=== PATIENT | female | born 1975 | race Caucasian/White ===

== ENCOUNTER 2024-01-03 13:30 | Emergency (ER) | payer MEDICAID, SELFPAY ==
[2024-01-03 13:36] VITALS: BP 102/74; PULSE 77; RESP 16; TEMP 36.4; O2SAT 100; BMI 31.2
--- NOTE | 2024-01-03 13:41 | ED_ITS ---
HPI - Back Pain/Injury General Chief Complaint: Back Pain/Injury Stated Complaint: BACK PAIN Time Seen by Provider: 01/03/24 13:35 Source: patient Mode of arrival: ambulance Limitations: no limitations History of Present Illness HPI Narrative: Patient is a 48-year-old female who presents to the emergency department by ambulance for low back pain. She received 4 mg IV Versed and 50 mcg of fentanyl prior to arrival by EMS for pain. She states 6 days ago she felt a pull in her low back. She was seen at the [place] emergency department yesterday and states that they did not do enough for her. She had a CT scan performed and was diagnosed with a UTI, she states she continues to have pain along the spine and into the left leg. She has occasional tingling. No new falls or injuries. No concern for . No fevers or vomiting. Records show she was prescribed Tylenol, ibuprofen and Flexeril from [place] emergency department. Related Data Previous Rx's Medication Instructions Recorded ketorolac 10 mg tablet 10 mg PO TID PRN pain #10 tabs 01/03/24 methocarbamol 750 mg tablet 750 mg PO TID PRN pain #20 tabs 01/03/24 methylprednisolone 4 mg tablets in See Rx Instructions .Route 01/03/24 a dose pack (Medrol (Eric)) .COMPLEX #21 ea Allergies Allergy/AdvReac Type Severity Reaction Status Date / Time tramadol Allergy Severe Hives Verified 01/03/24 13:35 Review of Systems ROS Constitutional Denies: fever or chills Ears, nose, mouth, and throat Denies: throat pain or nasal congestion Cardiovascular Denies: chest pain Respiratory Denies: shortness of breath or cough Gastrointestinal Denies: abdominal pain, nausea or vomiting Genitourinary Denies: painful urination Musculoskeletal Reports: back pain and extremity pain; Denies: neck pain or joint pain Integumentary/Breast Denies: rash Neurological Reports: numbness in extremities; Denies: headache Endocrine Denies: excessive urination Exam Narrative Exam Narrative: Gen.: Awake, alert, in no distress, Obese female laying on her right side Head: Normocephalic, atraumatic ENT: Moist mucous membranes Respiratory: No respiratory distress Back: Diffuse tenderness of the lumbar spine and paraspinal muscles with no bony point tenderness or obvious deformity. Exam limited by body habitus. Diffuse tenderness of the left posterior hip Extremities: Moves extremities equally, no injuries noted; Normal dorsiflexion and plantarflexion of the lower extremities with no decrease in sensation to the medial thighs Psych: Normal mood and affect Neuro: No focal neuro deficit Skin: Warm, dry, intact Constitutional Vital Signs, click to edit/add: Last Vital Signs Temp 97.6 F 01/03/24 13:36 Pulse 77 01/03/24 13:36 Resp 16 01/03/24 13:36 BP 102/74 01/03/24 13:36 Pulse Ox 100 01/03/24 13:36 O2 Del Method Room Air 01/03/24 13:36 Course Vital Signs Vital signs: Vital Signs Temperature 97.6 F 01/03/24 13:36 Pulse Rate 77 01/03/24 13:36 Respiratory Rate 16 01/03/24 13:36 Blood Pressure 102/74 01/03/24 13:36 Pulse Oximetry 100 01/03/24 13:36 Oxygen Delivery Method Room Air 01/03/24 13:36 Temperature 97.6 F 01/03/24 13:36 Pulse Rate 77 01/03/24 13:36 Respiratory Rate 16 01/03/24 13:36 Blood Pressure 102/74 01/03/24 13:36 Pulse Oximetry 100 01/03/24 13:36 Oxygen Delivery Method Room Air 01/03/24 13:36 MDM - Back Pain/Injury MDM Narrative Medical decision making narrative: As reviewed from [facility] yesterday where the patient had a urine spec imen, CT scan of the abdomen and pelvis showing no acute abnormalities of the lumbar spine with moderate degenerative changes. Her exam is consistent with lumbar radiculopathy and low back pain. She has no focal neurodeficit on exam. Pain was improved after IV Dilaudid and Norflex in the ER. She maintains normal vital signs in the ER, documentation showed she was prescribed Tylenol, ibuprofen and Flexeril yesterday. She was instructed to stop these medications and will be prescribed Toradol, Medrol Dosepak and Robaxin. Follow-up with PCP and return to the ER if symptoms change or worsen. Medical Records Attestation: I reviewed the patient's medical records. Discharge Plan Discharge Chief Complaint: Back Pain/Injury Clinical Impression: Lumbar radiculopathy, Low back pain Patient Disposition: Home, Self-Care Time of Disposition Decision: 14:43 Condition: Good Prescriptions / Home Meds: New ketorolac 10 mg tablet 10 mg PO TID PRN (Reason: pain) Qty: 10 0RF methocarbamol 750 mg tablet 750 mg PO TID PRN (Reason: pain) Qty: 20 0RF methylprednisolone [Medrol (Eric)] 4 mg tablets,dose pack See Rx Instructions .ROUTE .COMPLEX Qty: 21 0RF Rx Instructions: Taper as directed Instructions: Acute Low Back Pain (ED), Lumbar Radiculopathy (ED) Additional Instructions: Stop flexeril and ibuprofen that was prescribed yesterday, take only medications prescribed today Stand Alone Forms: Portal Instructions Referrals: LEE APONTE [Primary Care Provider] - 1 week
[2024-01-03] MEDS: ONDANSETRON PF 4 MG/2 ML VIAL IV (13:48)
[2024-01-03] MEDS: HYDROMORPHONE HCL 1 MG/ML CARTRIDGE IV (13:48)
[2024-01-03] MEDS: ORPHENADRINE 60 MG/ 2 ML VIAL IV (13:48)
== END 2024-01-03 15:21 | disposition home or self-care (01) ==
PROVIDERS: Emergency Provider Emergency Medicine; PCP Internal Medicine
DX: M54.16 Radiculopathy, lumbar region (principal); M54.50 Low back pain, unspecified; Z68.31 Body mass index [BMI] 31.0-31.9, adult; E66.9 Obesity, unspecified
CPT/HCPCS: 96374; 96375; 99284; J1170; J2360; J2405

== ENCOUNTER 2024-10-11 09:31 | Emergency (ER) | payer MEDICAID, SELFPAY ==
[2024-10-11 09:34] VITALS: BP 121/83; PULSE 90; TEMP 36.8; O2SAT 95; BMI 35.9
--- NOTE | 2024-10-11 09:44 | ED.GENADUL1 ---
HPI HPI - General Adult General Chief complaint: Upper Respiratory Infection Stated complaint: SORE THROAT, FEVER Time Seen by Provider: 10/11/24 09:33 Source: patient Mode of arrival: walk-in Limitations: no limitations History of Present Illness HPI narrative: Patient presents to ED complaining of upper respiratory symptoms. She said this started last night. She has chest congestion tightness and a cough. She also complains of a sore throat and her chest is hurting from coughing so much. She reports some sinus pressure and overall just not feeling well. No abdominal pain no nausea vomiting. Vital stable. No wheezing no respiratory distress Related Data Previous Rx's ?Medication ?Instructions ?Recorded ketorolac 10 mg tablet 10 mg PO TID PRN pain #10 tabs 01/03/24 methocarbamol 750 mg tablet 750 mg PO TID PRN pain #20 tabs 01/03/24 methylprednisolone 4 mg tablets in See Rx Instructions .Route 01/03/24 a dose pack (Medrol (Eric)) .COMPLEX #21 ea albuterol sulfate 90 mcg/actuation 1 inh inhalation Q6H PRN shortness 10/11/24 aerosol inhaler of breath or wheezing #8.5 grams hydrocodone-homatropine 5 mg-1.5 5 ml PO Q6H PRN cough #160 mL 10/11/24 mg/5 mL (5 mL) oral syrup (Hycodan) methylprednisolone 4 mg tablets in 4 mg PO DAILY #21 ea 10/11/24 a dose pack (Medrol (Eric)) Allergies Allergy/AdvReac Type Severity Reaction Status Date / Time tramadol Allergy Severe Hives Verified 10/11/24 09:37 Opioid HPI Opioid Management Most Recent Opioid Data: Last Pain Scale 8 01/03/24 13:55 01/03/24 Review of Systems ROS Status of ROS 10 or more systems reviewed and unremarkable except as noted in history and below PFSH PFS Social History Little interest or pleasure in doing things: not at all Feeling down, depressed, or hopeless: not at all Exam Narrative Exam Narrative: Time Seen: [] Vital Signs: [Per nurse's notes.] General: [Alert] Skin: [Warm, dry, no rash.] Head: [Normocephalic, atraumatic.] Neck: [Supple, trachea midline.] Eye: [Pupils are equal, round and reactive to light, extraocular movements are intact, normal conjunctiva.] Ears, nose, mouth and throat: oral mucosa moist. Posterior pharynx erythematous no exudates Cardiovascular: [Regular rate and rhythm, no murmur.] Respiratory: [Lungs are clear to auscultation, respirations are non-labored, breath sounds are equal.] Chest wall: [No tenderness, no deformity.] Gastrointestinal: [Soft, nontender, non distended, normal bowel sounds.] MSK: 5 out of 5 muscle strength x 4 extremities no calf pain or edema Lymphatics: [No lymphadenopathy.] Psychiatric: [Cooperative, appropriate mood & affect.] Neurological: [Alert and oriented to person, place, time, and situation, no focal neurological deficit observed.] Constitutional Vital Signs, click to edit/add: Last Vital Signs Temp 98.2 F 10/11/24 09:34 Pulse 90 10/11/24 09:34 Resp 20 10/11/24 09:34 BP 121/83 10/11/24 09:34 Pulse Ox 96 10/11/24 09:50 O2 Del Method Room Air 10/11/24 09:50 Course Vital Signs Vital signs: Vital Signs Temperature 98.2 F 10/11/24 09:34 Pulse Rate 90 10/11/24 09:34 Respiratory Rate 20 10/11/24 09:34 Blood Pressure 121/83 10/11/24 09:34 Pulse Oximetry 95 10/11/24 09:34 Oxygen Delivery Method Room Air 10/11/24 09:34 Temperature 98.2 F 10/11/24 09:34 Pulse Rate 90 10/11/24 09:34 Respiratory Rate 20 10/11/24 09:34 Blood Pressure 121/83 10/11/24 09:34 Pulse Oximetry 96 10/11/24 09:50 Oxygen Delivery Method Room Air 10/11/24 09:50 Medical Decision Making MDM Narrative Medical decision making narrative: Patient swabs are negative for flu COVID and strep. Symptoms just started yesterday therefore most likely viral. No need for antibiotics at this time. Return to ED if worsening symptoms otherwise use the medications for symptom control. Patient comfortable care plan for home. Differential Diagnosis Differential Diagnosis: Flu strep COVID viral syndrome pneumonia bronchitis Lab Data Lab results reviewed: Yes I reviewed the patient's lab results Labs: Lab Results 10/11/24 Range/Units 09:42 Influenza Type A Ag Negative Influenza Type B Ag Negative SARS-CoV-2 Ag (CV2AG) Negative (NEGATIVE) Streptococcus Screen Negative Discharge Plan Discharge Chief Complaint: Upper Respiratory Infection Clinical Impression: Upper respiratory infection Patient Disposition: Home, Self-Care Time of Disposition Decision: 10:11 Condition: Good Mode of Transportation: Private Vehicle Prescriptions / Home Meds: New albuterol sulfate 90 mcg/actuation HFA aerosol inhaler 1 inh inhalation Q6H PRN (Reason: shortness of breath or wheezing) Qty: 8.5 0RF methylprednisolone [Medrol (Eric)] 4 mg tablets,dose pack 4 mg PO DAILY Qty: 21 0RF hydrocodone-homatropine [Hycodan] 5-1.5 mg/5 mL (5 mL) syrup 5 ml PO Q6H PRN (Reason: cough) Qty: 160 0RF No Action ketorolac 10 mg tablet 10 mg PO TID PRN (Reason: pain) Qty: 10 0RF methocarbamol 750 mg tablet 750 mg PO TID PRN (Reason: pain) Qty: 20 0RF methylprednisolone [Medrol (Eric)] 4 mg tablets,dose pack See Rx Instructions .ROUTE .COMPLEX Qty: 21 0RF Rx Instructions: Taper as directed Print Language: [place]i Instructions: Upper Respiratory Infection (ED) Referrals: LEE APONTE [Primary Care Provider] - 1 week
[2024-10-11 09:50] VITALS: O2SAT 96
[2024-10-11 10:00] LABS: Influenza Virus A Antigen Negative; Influenza Virus B Antigen Negative; Internal Control Within Normal Limits; Strep A Antigen Screen Negative
[2024-10-11 10:01] LABS: Internal Control Within Normal Limits; SARS-CoV-2 Ag NEGATIVE (NEGATIVE)
[2024-10-11] MEDS: DEXAMETHASONE SOD PHOS 10 MG/ML VIAL PO (10:01)
--- OUTSIDE RECORDS SUMMARY | 2024-10-11 10:25 | XMS_ITS | CCD ---
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 1.025 Normal 1.003-[address] [place] [address] Comment on above: Performed By: #### N UM #### [facility] ([id number]) [address] [place] [address] [place] [address] UROBILINOGEN TANA 0.2 eu/dL Normal <1.1 [facility] Comment on above: Performed By: #### N UM #### [facility] ([id number]) [address] [place] [address] 14102 ECG 12 lead ECGon 05-12-2023 ECG 12 lead ECG [facility] [place] [address] Electrocardiograph Report Signed Patient: Laina Spain MR#: [id number] : 1975 Acct:[id number] Age/Sex: 48 / F ADM Date: 05/11/23 Loc: Room: [address] [place] [address] Type: ADM IN Attending Dr: Adolfo Mcleod MD Ordering Provider: Adolfo Mcleod MD Date of Service: 05/12/23 ECG/ECG 12 lead ECG: baseline Copies to: Test Reason : Blood Pressure : / mmHG Vent. Rate : 075 BPM Atrial Rate : 075 BPM P-R Int : 134 ms QRS Dur : 076 ms QT Int : 370 ms P-R-T Axes : 036 038 059 degrees QTc Int : 413 ms Normal sinus rhythm Low voltage QRS Borderline ECG No previous ECGs available Confirmed by KENDAL CALIXTO DO ([id number]) on 05/12/2023 10:24:38 PM Referred By: Electronically Signed By:KENDAL CALIXTO DO Transcribed By: MUS Signed By Kendal Calixto DO 05/12 Normal [facility] Alanine aminotransferase [En zymatic activity/volume] in Serum or PlasmaOrdered By: Jani Drummond on 05-11-2023 ALT [Catalytic activity/Vol] 10 U/L 7-52 [facility] Albumin [Mass/volume] in Ser um or Plasma by Bromocresol green (BCG) dye binding methoOrdered By: Jani Drummond on 05-11-2023 Albumin BCG dye [Mass/Vol] 4.4 g/dL 3.5-5.7 [facility] Alkaline phosphatase [Enzyma tic activity/volume] in Serum or PlasmaOrdered By: Jani Drummond on 05-11-2023 ALP [Catalytic activity/Vol] 69 U/L 34-104 [facility] Amphetamine Screen Ql (U)Ord ered By: Jani Drummond on 05-11-2023 Amphetamines Ql (U) Positive Negative [facility] Aspartate aminotransferase [ Enzymatic activity/volume] in Serum or PlasmaOrdered By: Jani Drummond on 05-11-2023 AST [Catalytic activity/Vol] 13 U/L 13-39 [facility] Automated erythrocytes count in urine sediment (number/area)Ordered By: Jani Drummond on 05-11-2023 RBC Auto (Urine sed) [#/Area] 5-9 [HPF] 0-4 [facility] Automated leukocytes count i n urine sediment (number/area)Ordered By: Jani Drummond on 05-11-2023 WBC Auto (Urine sed) [#/Area] 5-9 [HPF] 0-4 [facility] Automated urine sediment jayden cium oxalate crystal count by microscopy (number/high powOrdered By: Jani Drummond on 05-11-2023 Calcium oxalate crystals LM.HPF (Urine sed) [#/Area] 2+ [HPF] [facility] Barbiturates [Presence] in U rine by Screen methodOrdered By: Jani Drummond on 05-11-2023 Barbiturates Screen Ql (U) Negative Negative [facility] Basophils Auto (Bld) [#/Vol] Ordered By: Jani Drummond on 05-11-2023 Basophils (Bld) [#/Vol] 0.1 10*3/uL 0.0-0.2 [facility] Basophils/100 WBC Auto (Bld) Ordered By: Jani Drummond on 05-11-2023 Basophils/100 WBC (Bld) 0.8 % . [facility] Benzodiazepines Screen Ql (U )Ordered By: Jani Drummond on 05-11-2023 Benzodiazepines Ql (U) Negative Negative [facility] Benzoylecgonine [Presence] i n Urine by Screen methodOrdered By: Jani Drummond on 05-11-2023 Benzoylecgonine Screen Ql (U) Negative Negative [facility] Bilirubin Auto test strip Ql (U)Ordered By: Jani Drummond on 05-11-2023 Bilirubin Ql (U) Negative Negative [facility] Bilirubin.total [Mass/volume ] in Serum or PlasmaOrdered By: Jani Drummond on 05-11-2023 Bilirubin [Mass/Vol] 0.4 mg/dL 0.3-1.0 [facility] Calcium [Mass/volume] in Ser um or PlasmaOrdered By: Jani Drummond on 05-11-2023 Calcium [Mass/Vol] 9.1 mg/dL 8.6-10.3 [facility] Cannabinoids [Presence] in U rine by Screen methodOrdered By: Jani Drummond on 05-11-2023 Cannabinoids Screen Ql (U) Negative Negative [facility] Comment on above: These are unconfirme d results and should not be used for legal purposes. Drug Cut-Off Concentration: AMPH 1000 ng/mL ALISSON 200 ng/mL GRETA 200 ng/mL COCM 300 ng/mL OP 300 ng/mL PCP 25 ng/mL THC 20 ng/mL Carbon dioxide, total [Moles /volume] in Serum or PlasmaOrdered By: Jani Drummond on 05-11-2023 CO2 [Moles/Vol] 25.8 mmol/L 21.0-31.0 [facility] Chloride [Moles/volume] in S rolando or PlasmaOrdered By: Jani Drummond on 05-11-2023 Chloride [Moles/Vol] 104 mmol/L 98-107 [facility] Cholesterol [Mass/volume] in Serum or PlasmaOrdered By: Adolfo Mcleod on 05-11-2023 Cholesterol [Mass/Vol] 175 mg/dL 140-200 [facility] Comment on above: Chol less than 200 m g/dl low riskChol 201-239 mg/dl borderline riskChol 240 mg/dl and greater high risk Cholesterol in LDL Calc [Mas s/Vol]Ordered By: Adolfo Mcleod on 05-11-2023 Cholesterol in LDL [Mass/Vol] 74 mg/dL 0-100 [facility] Comment on above: LDL ATP III CLASSIFI CATIONLDL less than 100 mg/dL OptimalLDL 100-129 mg/dL Near or above optimalLDL 130-159 mg/dL Borderline highLDL 160-189 mg/dL HighLDL greater than 189 mg/dL Very high Cholesterol in VLDL Calc [Ma ss/Vol]Ordered By: Adolfo Mcleod on 05-11-2023 Cholesterol in VLDL [Mass/Vol] 62 mg/dL [facility] Complete Blood Count Auto Di ffon 05-11-2023 Basophils (Bld) [#/Vol] 0.1 10*3/uL Normal 0.0-0.2 [facility] Comment on above: Result Comment: PERF ORMED BY: [facility] [address] [place] [address] PATHOLOGIST COKE CRUSHER OPERATOR PETAR OLMOS M.D. Performed By: #### C BC, CMP, ETOH #### [facility] [address] [place] [address] [place] Basophils/100 WBC (Bld) 0.8 % Normal . [facility] Comment on above: Performed By: #### C BC, CMP, ETOH #### [facility] [address] [place] [address] [place] Eosinophils (Bld) [#/Vol] 0.3 10*3/uL Normal 0.0-0.45 [facility] Comment on above: Performed By: #### C BC, CMP, ETOH #### [facility] [address] [place] [address] [place] Eosinophils/100 WBC (Bld) 3.3 % Normal . [facility] Comment on above: Performed By: #### C BC, CMP, ETOH #### [facility] [address] Erythrocyte distribution width (RBC) [Ratio] 13.7 % Normal 11.9-15.3 [facility] Comment on above: Performed By: #### C BC, CMP, ETOH #### [facility] [address] Hematocrit (Bld) [Volume fraction] 41.6 % Normal 34.0-46.4 [facility] Comment on above: Performed By: #### C BC, CMP, ETOH #### [facility] [address] [place] [address] [place] Hemoglobin (Bld) [Mass/Vol] 13.8 g/dL Normal 11.8-15.4 [facility] Comment on above: Performed By: #### C BC, CMP, ETOH #### [facility] [address] [place] [address] [place] Lymphocytes (Bld) [#/Vol] 2.7 10*3/uL Normal 1.00-4.8 [facility] Comment on above: Performed By: #### C BC, CMP, ETOH #### [facility] [address] [place] [address] [place] Lymphocytes/100 WBC (Bld) 31.5 % Normal . [facility] Comment on above: Performed By: #### C BC, CMP, ETOH #### [address] MCH (RBC) [Entitic mass] 27.2 pg Normal 24.7-34.3 [facility] Comment on above: Performed By: #### C BC, CMP, ETOH #### [address] MCV (RBC) [Entitic vol] 81.9 fL Normal 80-100 [facility] Comment on above: Performed By: #### C BC, CMP, ETOH #### [address] Mean Corpuscular HGB Conc 33.2 g/dL Normal 32.0-35.0 [facility] Comment on above: Performed By: #### C BC, CMP, ETOH #### [address] Monocytes (Bld) [#/Vol] 0.4 10*3/uL Normal 0.0-0.8 [facility] Comment on above: Performed By: #### C BC, CMP, ETOH #### [address] Monocytes/100 WBC (Bld) 18.53 % Normal 0.00-20.00 [facility] Comment on above: Performed By: #### C BC, CMP, ETOH #### [address] Monocytes/100 WBC (Bld) 4.7 % Normal . [facility] Comment on above: Performed By: #### C BC, CMP, ETOH #### [address] Neutrophils (Bld) [#/Vol] 5.1 10*3/uL Normal 1.8-7.7 [facility] Comment on above: Performed By: #### C BC, CMP, ETOH #### [place] [address] [place] Neutrophils/100 WBC (Bld) 59.7 % Normal . [facility] Comment on above: Performed By: #### C BC, CMP, ETOH #### [address] NRBC% 0.1 /100{WBC} Normal 0-0.5 [facility] Comment on above: Performed By: #### C BC, CMP, ETOH #### [address] Platelet mean volume (Bld) [Entitic vol] 7.7 fL Normal 6.3-10.7 [facility] Comment on above: Performed By: #### C BC, CMP, ETOH #### [address] Platelets (Bld) [#/Vol] 310 10*3/uL Normal 150-450 [facility] Comment on above: Performed By: #### C BC, CMP, ETOH #### [address] RBC (Bld) [#/Vol] 5.08 10*6/uL High 3.60-5.00 [facility] Comment on above: Performed By: #### C BC, CMP, ETOH #### [address] WBC (Bld) [#/Vol] 8.6 10*3/uL Normal 3.8-11.6 [facility] Comment on above: Performed By: #### C BC, CMP, ETOH #### [address] Comprehensive Metabolic Pane tra 05-11-2023 Albumin [Mass/Vol] 4.4 g/dL Normal 3.5-5.7 [facility] Comment on above: Performed By: #### C BC, CMP, ETOH #### [address] Albumin/Globulin [Mass ratio] 1.5 {ratio} Normal [facility] Comment on above: Performed By: #### C BC, CMP, ETOH #### [address] ALP [Catalytic activity/Vol] 69 U/L Normal 34-104 [facility] Comment on above: Performed By: #### C BC, CMP, ETOH #### [address] ALT [Catalytic activity/Vol] 10 U/L Normal 7-52 [facility] Comment on above: Performed By: #### C BC, CMP, ETOH #### [address] Anion gap [Moles/Vol] 12.2 mmol/L Normal 6.0-15.0 [facility] Comment on above: Performed By: #### C BC, CMP, ETOH #### [address] AST [Catalytic activity/Vol] 13 U/L Normal 13-39 [facility] Comment on above: Performed By: #### C BC, CMP, ETOH #### [address] Bilirubin [Mass/Vol] 0.4 mg/dL Normal 0.3-1.0 [facility] Comment on above: Performed By: #### C BC, CMP, ETOH #### [address] Calcium [Mass/Vol] 9.1 mg/dL Normal 8.6-10.3 [facility] Comment on above: Performed By: #### C BC, CMP, ETOH #### [address] Chloride [Moles/Vol] 104 mmol/L Normal 98-107 [facility] Comment on above: Performed By: #### C BC, CMP, ETOH #### [address] CO2 [Moles/Vol] 25.8 mmol/L Normal 21.0-31.0 [facility] Comment on above: Performed By: #### C BC, CMP, ETOH #### [place] [address] [place] Creatinine [Mass/Vol] 0.76 mg/dL Normal 0.60-1.20 [facility] Comment on above: Performed By: #### C BC, CMP, ETOH #### [place] [address] [place] Creatinine Clr Calc Pharmacy 98.53 Normal [facility] Comment on above: Result Comment: PERF ORMED BY: [place] [address] PATHOLOGIST COKE CRUSHER OPERATOR PETAR OLMOS M.D. Performed By: #### C BC, CMP, ETOH #### [address] GFR/1.73 sq M.predicted MDRD (S/P/Bld) [Vol rate/Area] mL/min/{1.73_m2} Normal [facility] Comment on above: Performed By: #### C BC, CMP, ETOH #### [address] Globulin (S) [Mass/Vol] 3.0 g/dL Normal [facility] Comment on above: Performed By: #### C BC, CMP, ETOH #### [address] Glucose [Mass/Vol] 120 mg/dL High 70-100 [facility] Comment on above: Result Comment: [place] Glucose Reference Range is dependent on time and content of last meal. Glucose of more than 200 mg/dL in a nonstressed, ambulatory subject supports the diagnosis of Diabetes Mellitus. ADA recommended reference range Performed By: #### C BC, CMP, ETOH #### [address] Potassium [Moles/Vol] 4.0 mmol/L Normal 3.5-5.1 [facility] Comment on above: Performed By: #### C BC, CMP, ETOH #### [address] Protein [Mass/Vol] 7.4 g/dL Normal 6.4-8.9 [facility] Comment on above: Performed By: #### C BC, CMP, ETOH #### [facility] [address] [place] [address] [place] Sodium [Moles/Vol] 138 mmol/L Normal 136-145 [facility] Comment on above: Performed By: #### C BC, CMP, ETOH #### [facility] [address] Urea nitrogen [Mass/Vol] 8 mg/dL Normal 7-25 [facility] Comment on above: Performed By: #### C BC, CMP, ETOH #### [place] [address] [place] Creatinine [Mass/volume] in Serum or PlasmaOrdered By: Jani Drummond on 05-11-2023 Creatinine [Mass/Vol] 0.76 mg/dL 0.60-1.[address] [facility] Dipstick and Microscopicon 0 05-11-2023 Appearance (U) Slightly Cloudy Critically abnormal Clear [facility] Comment on above: Order Comment: Name Collection Type:: Clean-Voided Midstream Performed By: #### A DDONUAPLUS, URDS, UHCG #### [place] [address] [place] Bacteria,Urine 2+ High None Seen [facility] Comment on above: Order Comment: Name Collection Type:: Clean-Voided Midstream Performed By: #### A DDONUAPLUS, URDS, UHCG #### [place] [address] [place] Bilirubin,Urine Negative Normal Negative [facility] Comment on above: Order Comment: Name Collection Type:: Clean-Voided Midstream Performed By: #### A DDONUAPLUS, URDS, UHCG #### [place] [id number] [place] Calcium Oxalate Crystals,Urine 2+ Normal [facility] Comment on above: Order Comment: Name Collection Type:: Clean-Voided Midstream Performed By: #### A DDONUAPLUS, URDS, UHCG #### [place] [address] [place] Color (U) Yellow Normal Yellow [facility] Comment on above: Order Comment: Name Collection Type:: Clean-Voided Midstream Performed By: #### A DDONUAPLUS, URDS, UHCG #### [address] Glucose Ql (U) Normal Normal Normal [facility] Comment on above: Order Comment: Name Collection Type:: Clean-Voided Midstream Performed By: #### A DDONUAPLUS, URDS, UHCG #### [place] [address] [place] Hyaline Casts,Urine 0-8 Normal 0-8 [facility] Comment on above: Order Comment: Name Collection Type:: Clean-Voided Midstream Performed By: #### A DDONUAPLUS, URDS, UHCG #### [address] Ketones Ql (U) Negative Normal Negative [facility] Comment on above: Order Comment: Name Collection Type:: Clean-Voided Midstream Performed By: #### A DDONUAPLUS, URDS, UHCG #### [address] Leukocyte esterase Test strip Ql (U) Negative Normal Negative [facility] Comment on above: Order Comment: Name Collection Type:: Clean-Voided Midstream Performed By: #### A DDONUAPLUS, URDS, UHCG #### [place] [address] [place] Nitrite,Urine Negative Normal Negative [facility] Comment on above: Order Comment: Name Collection Type:: Clean-Voided Midstream Performed By: #### A DDONUAPLUS, URDS, UHCG #### [place] [address] [place] Occult Blood,Urine Negative Normal Negative [facility] Comment on above: Order Comment: Name Collection Type:: Clean-Voided Midstream Performed By: #### A DDONUAPLUS, URDS, UHCG #### [address] pH (U) 5.5 [pH] Normal 5.0-9.0 [facility] Comment on above: Order Comment: Name Collection Type:: Clean-Voided Midstream Performed By: #### A DDONUAPLUS, URDS, UHCG #### [address] Protein,Urine Negative Normal Negative [facility] Comment on above: Order Comment: Name Collection Type:: Clean-Voided Midstream Performed By: #### A DDONUAPLUS, URDS, UHCG #### [address] RBC,Urine 5-9 High 0-4 [facility] Comment on above: Order Comment: Name Collection Type:: Clean-Voided Midstream Performed By: #### A DDONUAPLUS, URDS, UHCG #### [address] Specificy [place],Urine 1.030 Normal 1.001-1.03 0 [facility] Comment on above: Order Comment: Name Collection Type:: Clean-Voided Midstream Performed By: #### A DDONUAPLUS, URDS, UHCG #### [address] Squamous Epithelial Cell,Urine Innumerable High 0-2 [facility] Comment on above: Order Comment: Name Collection Type:: Clean-Voided Midstream Performed By: #### A DDONUAPLUS, URDS, UHCG #### [place] [address] [place] Urobilinogen,Urine Normal Normal Normal [facility] Comment on above: Order Comment: Name Collection Type:: Clean-Voided Midstream Performed By: #### A DDONUAPLUS, URDS, UHCG #### [place] [address] [place] WBC,Urine 5-9 High 0-4 [facility] Comment on above: Order Comment: Name Collection Type:: Clean-Voided Midstream Performed By: #### A DDONUAPLUS, URDS, UHCG #### [address] Drug Screen,Urineon 05-11-20 Amphetamine Screen,Urine Positive High Negative [facility] Comment on above: Performed By: #### A DDONUAPLUS, URDS, UHCG #### [address] Barbiturate Screen,Urine Negative Normal Negative [facility] Comment on above: Performed By: #### A DDONUAPLUS, URDS, UHCG #### [address] Benzodiazepines Screen,Urine Negative Normal Negative [facility] Comment on above: Performed By: #### A DDONUAPLUS, URDS, UHCG #### [address] Cannabinoid Screen,Urine Negative Normal Negative [facility] Comment on above: Result Comment: Thes e are unconfirmed results and should not be used for legal purposes. Drug Cut-Off Concentration: AMPH 1000 ng/mL ALISSON 200 ng/mL GRETA 200 ng/mL COCM 300 ng/mL OP 300 ng/mL PCP 25 ng/mL THC 20 ng/mL PERFORMED BY: [place] [address] PATHOLOGIST COKE CRUSHER OPERATOR PETAR OLMOS M.D. Performed By: #### A DDONUAPLUS, URDS, UHCG #### [address] Cocaine Screen,Urine Negative Normal Negative [facility] Comment on above: Performed By: #### A DDONUAPLUS, URDS, UHCG #### [place] [address] [place] Opiate Screen,Urine Negative Normal Negative [facility] Comment on above: Performed By: #### A DDONUAPLUS, URDS, UHCG #### [place] [address] [place] Phencyclidine Screen,Urine Negative Normal Negative [facility] Comment on above: Performed By: #### A DDONUAPLUS, URDS, UHCG #### [address] Eosinophils Auto (Bld) [#/Vo l]Ordered By: Jani Drummond on 05-11-2023 Eosinophils (Bld) [#/Vol] 0.3 10*3/uL 0.0-0.45 [facility] Eosinophils/100 WBC Auto (Bl d)Ordered By: Jnai Drummond on 05-11-2023 Eosinophils/100 WBC (Bld) 3.3 % . [facility] Erythrocyte distribution wid th Auto (RBC) [Ratio]Ordered By: Jani Drummond on 05-11-2023 Erythrocyte distribution width (RBC) [Ratio] 13.7 % 11.9-15.3 [facility] Ethanol [Mass/volume] in Ser um or PlasmaOrdered By: Jani Drummond on 05-11-2023 Ethanol [Mass/Vol] mg/dL [facility] Ethanol [Mass/Vol] TNP [facility] Comment on above: Test not performed Ethyl Alcohol Profileon 04-22 Ethanol [Mass/Vol] mg/dL Normal [facility] Comment on above: Performed By: #### C BC, CMP, ETOH #### [facility] [address] [place] [address] Percent Ethanol Not performed Normal [facility] Comment on above: Result Comment: PERF ORMED BY: [place] [address] PATHOLOGIST COKE CRUSHER OPERATOR PETAR OLMOS M.D. Performed By: #### C BC, CMP, ETOH #### [address] Globulin Calc (S) [Mass/Vol] Ordered By: Jani Drummond on 05-11-2023 Globulin (S) [Mass/Vol] 3.0 g/dL [facility] Glucose [Mass/volume] in Ser um or PlasmaOrdered By: Jani Drummond on 05-11-2023 Glucose [Mass/Vol] 120 mg/dL 70-100 [facility] Comment on above: ADA recommended refe rence rangeRandom Glucose Reference Range is dependent on time and content of last meal. Glucose of more than 200 mg/dL in a nonstressed, ambulatory subject supports the diagnosis of Diabetes Mellitus. HCG ( test) IAjenai d Ql (U)Ordered By: Jani Drummond on 05-11-2023 HCG ( test) Ql (U) Negative [facility] HCG,Urineon 05-11-2023 Beta HCG ( test) Ql (U) Negative Normal [facility] Comment on above: Order Comment: Name Collection Type:: Clean-Voided Midstream Result Comment: PERF ORMED BY: [place] [address] PATHOLOGIST COKE CRUSHER OPERATOR PETAR OLMOS M.D. Performed By: #### A DDONUAPLUS, URDS, C #### [address] Hematocrit Auto (Bld) [Volum e fraction]Ordered By: Jani Drummond on 05-11-2023 Hematocrit (Bld) [Volume fraction] 41.6 % 34.0-46.4 [facility] Hemoglobin [Mass/volume] in BloodOrdered By: Jani Drummond on 05-11-2023 Hemoglobin (Bld) [Mass/Vol] 13.8 g/dL 11.8-15.4 [facility] Ketones Auto test strip (U) [Mass/Vol]Ordered By: Jani Drummond on 05-11-2023 Ketones (U) [Mass/Vol] Negative Negative [facility] Laboratory - UrinalysisOrder ed By: Jani Drummond on 05-11-2023 Hyaline casts LM Ql (Urine sed) 0-8 [LPF] 0-8 [facility] Leukocytes [#/volume] correc sai for nucleated erythrocytes in Blood by Automated counOrdered By: Jani Drummond on 05-11-2023 WBC corrected for nucl RBC Auto (Bld) [#/Vol] 8.6 10*3/uL 3.8-11.6 [facility] Lipid Panelon 05-11-2023 Cholesterol [Mass/Vol] 175 mg/dL Normal 140-200 [facility] Comment on above: Order Comment: Comme nt use ER blood Result Comment: Chol less than 200 mg/dl low risk Chol 201-239 mg/dl borderline risk Chol 240 mg/dl and greater high risk Performed By: #### L IPID, [id number], TSH3 [id number] #### [facility] [address] [id number] [place] Cholesterol in HDL [Mass/Vol] 38 mg/dL Normal 23-92 [facility] Comment on above: Order Comment: Comme nt use ER blood Result Comment: HDL CHOL ATP-III CLASSIFICATION Cardiovascular Risk HDL > or equal to 60 mg/dL LOW HDL < 40 mg/dL HIGH Performed By: #### L IPID, [id number], TSH3 [id number] #### [facility] [address] [id number] [facility] Cholesterol.total/Cho lesterol in HDL [Mass ratio] 4.6 {ratio} Normal <5.0 [facility] Comment on above: Order Comment: Comme nt use ER blood Performed By: #### L IPID, [id number], TSH3 wRFLX #### [facility] [address] [id number] [facility] LDL Cholesterol,Calculate d 74 mg/dL Normal 0-100 [facility] Comment on above: Order Comment: Comme nt use ER blood Result Comment: LDL ATP III CLASSIFICATION LDL less than 100 mg/dL Optimal LDL 100-129 mg/dL Near or above optimal LDL 130-159 mg/dL Borderline high LDL 160-189 mg/dL High LDL greater than 189 mg/dL Very high Performed By: #### L IPID, [id number], TSH3 wRFLX #### [facility] [address] [id number] [place] Triglyceride w/Reflex 314 mg/dL High 0-149 [facility] Comment on above: Order Comment: Comme nt use ER blood Result Comment: TRIG ATP III CLASSIFICATION TRIG less than 150 mg/dL Normal TRIG 150-199 mg/dL Borderline high TRIG 200-500 mg/dL High TRIG greater than 500 mg/dL Very high Standard traceable to the Center for Disease Conrtrol and Prevention (CDC) test method. Performed By: #### L IPID, [id number], TSH3 wRFLX #### [facility] [address] [id number] [facility] VLDL CHOLESTEROL 62 mg/dL Normal [facility] Comment on above: Order Comment: Comme nt use ER blood Performed By: #### L IPID, [id number], TSH3 wRFLX #### [facility] [address] Lymphocytes Auto (Bld) [#/Vo l]Ordered By: Jani Drummond on 05-11-2023 Lymphocytes (Bld) [#/Vol] 2.7 10*3/uL 1.00-4.8 [facility] Lymphocytes/100 WBC Auto (Bl d)Ordered By: Jani Drummond on 05-11-2023 Lymphocytes/100 WBC (Bld) 31.5 % . [facility] MCH Auto (RBC) [Entitic mass ]Ordered By: Jani Drummond on 05-11-2023 MCH (RBC) [Entitic mass] 27.2 pg 24.7-34.3 [facility] MCHC Auto (RBC) [Mass/Vol]Or dered By: Jani Drummond on 05-11-2023 MCHC (RBC) [Mass/Vol] 33.2 g/dL 32.0-35.[address] [facility] MCV Auto (RBC) [Entitic vol] Ordered By: Jani Drummond on 05-11-2023 MCV (RBC) [Entitic vol] 81.9 fL 80-100 [facility] Monocyte distribution width [Entitic volume] in Blood by AutomatedOrdered By: Jani Drummond on 05-11-2023 Monocyte distribution width Auto (Bld) [Entitic vol] 18.53 % 0.00-20.00 [facility] Monocytes Auto (Bld) [#/Vol] Ordered By: Jani Drummond on 05-11-2023 Monocytes (Bld) [#/Vol] 0.4 10*3/uL 0.0-0.8 [facility] Monocytes/100 WBC Auto (Bld) Ordered By: Jani Drummond on 05-11-2023 Monocytes/100 WBC (Bld) 4.7 % . [facility] Neutrophils Auto (Bld) [#/Vo l]Ordered By: Jani Drummond on 05-11-2023 Neutrophils (Bld) [#/Vol] 5.1 10*3/uL 1.8-7.7 [facility] Neutrophils/100 WBC Auto (Bl d)Ordered By: Jani Drummond on 05-11-2023 Neutrophils/100 WBC (Bld) 59.7 % . [facility] No Panel InformationOrdered By: Jani Drummond on 05-11-2023 Estimated GFR (CKD-EPI) > 60.0 mL/Min [facility] Creatinine Clearance (Chem 98.53 [facility] Nucleated erythrocytes [Pres ence] in Blood by Automated countOrdered By: Jani Drummond on 05-11-2023 Nucleated RBC Auto Ql (Bld) 0.1 /100{WBC} 0-0.5 [facility] Opiates [Presence] in Urine by Screen methodOrdered By: Jani Drummond on 05-11-2023 Opiates Screen Ql (U) Negative Negative [facility] Phencyclidine Screen Ql (U)O rdered By: Jani Drummond on 05-11-2023 Phencyclidine Ql (U) Negative Negative [facility] Platelet mean volume Auto (B ld) [Entitic vol]Ordered By: Jani Drummond on 05-11-2023 Platelet mean volume (Bld) [Entitic vol] 7.7 fL 6.3-10.7 [facility] Platelets Auto (Bld) [#/Vol] Ordered By: Jani Drummond on 05-11-2023 Platelets (Bld) [#/Vol] 310 10*3/uL 150-450 [facility] Potassium [Moles/volume] in Serum or PlasmaOrdered By: Jani Drummond on 05-11-2023 Potassium [Moles/Vol] 4.0 mmol/L 3.5-5.[address] [facility] Protein Auto test strip (U) [Mass/Vol]Ordered By: Jani Drummond on 05-11-2023 Protein (U) [Mass/Vol] Negative Negative [facility] Protein [Mass/volume] in Ser um or PlasmaOrdered By: Jani Drummond on 05-11-2023 Protein [Mass/Vol] 7.4 g/dL 6.4-8.9 [facility] RBC Auto (Bld) [#/Vol]Ordere d By: Jani Drummond on 05-11-2023 RBC (Bld) [#/Vol] 5.08 10*6/uL 3.60-5.00 [facility] Serum or plasma albumin/glob ulin mass ratioOrdered By: Jani Drummond on 05-11-2023 Albumin/Globulin [Mass ratio] 1.5 {ratio} [facility] Serum or plasma anion gap de terminationOrdered By: Jani Drummond on 05-11-2023 Anion gap [Moles/Vol] 12.2 mmol/L 6.0-15.0 [facility] Serum or plasma high density lipoprotein (HDL) cholesterol measurementOrdered By: Adolfo Mcleod on 05-11-2023 Cholesterol in HDL [Mass/Vol] 38 mg/dL 23-92 [facility] Comment on above: HDL CHOL ATP-III CLA SSIFICATION Cardiovascular RiskHDL > or equal to 60 mg/dL LOWHDL < 40 mg/dL HIGH Serum or plasma total choles terol/high density lipoprotein (HDL) cholesterol mass ratOrdered By: Adolfo Mcleod on 05-11-2023 Cholesterol.total/Cho lesterol in HDL [Mass ratio] 4.6 {ratio} <5.0 [facility] Sodium [Moles/volume] in Ser um or PlasmaOrdered By: Jani Drummond on 05-11-2023 Sodium [Moles/Vol] 138 mmol/L 136-145 [facility] Squamous epithelial cells de tection in urine sediment by light microscopyOrdered By: Jani Drummond on 05-11-2023 Epithelial cells.squamous LM Ql (Urine sed) Innumerable [HPF] 0-2 [facility] Thyroid Stim Hormone w/Rflxo n 05-11-2023 Thyroid Stim Hormone w/Rflx 1.08 u[iU]/mL Normal 0.45-5.33 [facility] Comment on above: Order Comment: Comme nt use ER blood Performed By: #### L IPID, [id number], TSH3 [id number] #### [facility] [address] Thyrotropin [Units/volume] i n Serum or PlasmaOrdered By: Adolfo Mcleod on 05-11-2023 TSH Qn 1.08 m[IU]/L 0.45-5.33 [facility] Triglyceride [Mass/volume] i n Serum or PlasmaOrdered By: Adolfo Mcleod on 05-11-2023 Triglyceride [Mass/Vol] 314 mg/dL 0-149 [facility] Comment on above: TRIG ATP III CLASSIF ICATIONTRIG less than 150 mg/dL NormalTRIG 150-199 mg/dL Borderline highTRIG 200-500 mg/dL High TRIG greater than 500 mg/dL Very highStandard traceable to the Center for Disease Conrtrol and Prevention (CDC) test method. Urea nitrogen [Mass/volume] in Serum or PlasmaOrdered By: Jani Drummond on 05-11-2023 Urea nitrogen [Mass/Vol] 8 mg/dL 06-14 [facility] Urine appearanceOrdered By: Jani Drummond on 05-11-2023 Appearance (U) Slightly cloudy Clear [facility] Urine bacteria detection by automated methodOrdered By: Jani Drummond on 05-11-2023 Bacteria Auto Ql (U) 2+ None Seen [facility] Urine colorOrdered By: Jani Drummond on 05-11-2023 Color (U) Yellow Yellow [facility] Urine glucose measurement by automated test strip (mass/volume)Ordered By: Jani Drummond on 05-11-2023 Glucose Auto test strip (U) [Mass/Vol] Normal mg/dL Normal [facility] Urine hemoglobin detection b y automated test stripOrdered By: Jani Drummond on 05-11-2023 Hemoglobin Auto test strip Ql (U) Negative Negative [facility] Urine leukocyte esterase det ection by automated test stripOrdered By: Jani Drummond on 05-11-2023 Leukocyte esterase Auto test strip Ql (U) Negative Negative [facility] Urine nitrite detection by a utomated test stripOrdered By: Jani Drummond on 05-11-2023 Nitrite Auto test strip Ql (U) Negative Negative [facility] Urine sediment crystal ident ification by light microscopyOrdered By: Jani Drummond on 05-11-2023 Crystals LM Nom (Urine sed) N/A [facility] Urobilinogen Auto test strip (U) [Mass/Vol]Ordered By: Jani Drummond on 05-11-2023 Urobilinogen (U) [Mass/Vol] Normal mg/dL Normal [facility] Vitamin D 25 Hydroxy Totalon 05-11-2023 Vitamin D 25 Hydroxy Total 21.8 ng/mL Low 30-100 [facility] Comment on above: Order Comment: Comme nt use ER blood Result Comment: CLEMENTINA MIN D STATUS 25(OH)VITAMIN D RANGE (ng/mL) Deficient <20 Insufficient 20 to <30 Sufficient 30 to 100 Reference: Matt Key, Josesito DOWNEY, et al. Evaluation,treatment, and prevention of vitamin D deficiency; an Endocrine Society clinical practice guideline. JCEM. 2010; 96(7):1911-30. PERFORMED BY: [place] [address] PATHOLOGIST COKE CRUSHER OPERATOR PETAR OLMOS M.D. Performed By: #### L IPID, [id number], TSH3 wRFLX #### [address] Vitamin D+Metabolites [Mass/ volume] in Serum or PlasmaOrdered By: Adolfo Mcleod on 05-11-2023 Vitamin D+Metabolites [Mass/Vol] 21.8 ng/mL 30-100 [facility] Comment on above: VITAMIN D STATUS 25( [place])VITAMIN D RANGE (ng/mL) Deficient <20 Insufficient 20 to <30Sufficient 30 to 100Reference: Amaris BARNES,Matt GARCIA, Josesito DOWNEY, et al. Evaluation,treatment, and prevention of vitamin D deficiency; an Endocrine Society clinical practice guideline. JCEM. 2010; 96(7):1911-30. WBC Auto (Bld) [#/Vol]Ordere d By: Jani Drummond on 05-11-2023 WBC (Bld) [#/Vol] 8.6 10*3/uL 3.8-11.6 [facility] pH Auto test strip (U)Ordere d By: Jani Drummond on 05-11-2023 pH (U) 1.030 [pH] 1.001-1.03 0 [facility] pH (U) 5.5 [pH] 5.0-9.0 [facility] CBCon 10-02-2021 Erythrocyte distribution width (RBC) [Ratio] 13.1 % Normal 11.8-14.4 [facility] Comment on above: Performed By: #### C P, CBC #### [facility] [address] [place] [address] Disaster Recovery Consultant: Miranda Estrada MD Hematocrit (Bld) [Volume fraction] 43.9 % Normal 36.3-47.1 [facility] Comment on above: Performed By: #### C P, CBC #### [address] [place], [facility]83 Disaster Recovery Consultant: Miranda Estrada MD Hemoglobin (Bld) [Mass/Vol] 13.9 g/dL Normal 11.9-15.1 [facility] Comment on above: Performed By: #### C P, CBC #### [address] [place] [id number] Disaster Recovery Consultant: Miranda Estrada MD MCH (RBC) [Entitic mass] 26.8 pg Normal 25.2-33.5 [facility] Comment on above: Performed By: #### C P, CBC #### [address] [place] [id number] Disaster Recovery Consultant: Miranda Estrada MD MCHC (RBC) [Mass/Vol] 31.7 g/dL Normal 28.4-34.8 [facility] Comment on above: Performed By: #### C P, CBC #### [address] [place] [address] Disaster Recovery Consultant: Miranda Estrada MD MCV (RBC) [Entitic vol] 84.7 fL Normal 82.6-102.9 [facility] Comment on above: Performed By: #### C P, CBC #### [address] [place] [id number] Disaster Recovery Consultant: Miranda Estrada MD NRBC Automated 0.0 per 100 WBC Normal 0.0 [facility] Comment on above: Performed By: #### C P, CBC #### [address] [place], [facility]83 Disaster Recovery Consultant: Miranda Estrada MD Platelet mean volume (Bld) [Entitic vol] 10.1 fL Normal 8.1-13.5 [facility] Comment on above: Performed By: #### C P, CBC #### [facility] [address] [place], [place] [id number] Disaster Recovery Consultant: Miranda Estrada MD Platelets (Bld) [#/Vol] 333 10*3/uL Normal 138-453 [facility] Comment on above: Performed By: #### C P, CBC #### [facility] [address] [place] [address] Disaster Recovery Consultant: Miranda Estrada MD RBC (Bld) [#/Vol] 5.18 10*6/uL High 3.95-5.11 [facility] Comment on above: Performed By: #### C P, CBC #### [address] [place], [place] [id number] Disaster Recovery Consultant: Miranda Estrada MD WBC (Bld) [#/Vol] 9.7 10*3/uL Normal 3.5-11.3 [facility] Comment on above: Performed By: #### C P, CBC #### [address] [place] [address] Disaster Recovery Consultant: Miranda Estrada MD Comp Metabolic Profon 2020 (cont.) Normal [facility] Comment on above: Result Comment: Aver age GFR for 40-49 years old: 99 mL/min/1.73sq m Chronic Kidney Disease: <60 mL/min/1.73sq m Kidney failure: <15 mL/min/1.73sq m eGFR calculated using average adult body mass. Additional eGFR calculator available at: http://www.Shareight.Cloudscaling/multiple_crcl_2012.htm Performed By: #### C P, CBC #### [address] [place] [address] Disaster Recovery Consultant: Miranda Estrada MD Albumin [Mass/Vol] 4.6 g/dL Normal 3.5-5.2 [facility] Comment on above: Performed By: #### C P, CBC #### [facility] [address] [place] [address] Disaster Recovery Consultant: Miranda Estrada MD Albumin/Glob Ratio 1.4 Normal 1.0-2.5 [facility] Comment on above: Performed By: #### C P, CBC #### [facility] [address] [place] [address] Disaster Recovery Consultant: Miranda Estrada MD Alkaline Phos 77 U/L Normal 35-104 [facility] Comment on above: Performed By: #### C P, CBC #### [facility] [address] [place] [address] Disaster Recovery Consultant: Miranda Estrada MD ALT [Catalytic activity/Vol] 14 U/L Normal 5-33 [facility] Comment on above: Performed By: #### C P, CBC #### [facility] [address] [place] [address] Disaster Recovery Consultant: Miranda Estrada MD Anion gap [Moles/Vol] 13 mmol/L Normal 9-17 [facility] Comment on above: Performed By: #### C P, CBC #### [facility] [address] [place] [address] Disaster Recovery Consultant: Miranda Estrada MD AST [Catalytic activity/Vol] 13 U/L Normal <32 [facility] Comment on above: Performed By: #### C P, CBC #### [facility] [address] [place] [address] Disaster Recovery Consultant: Miranda Estrada MD Bilirubin [Mass/Vol] 0.25 mg/dL Low 0.3-1.2 [facility] Comment on above: Performed By: #### C P, CBC #### [facility] [address] [place] [address] Disaster Recovery Consultant: Miranda Estrada MD BUN/CRE Ratio 23 High 9-20 [facility] Comment on above: Performed By: #### C P, CBC #### [facility] [address] [place], [place] [id number] Disaster Recovery Consultant: Miranda Estrada MD Calcium [Mass/Vol] 9.8 mg/dL Normal 8.6-10.4 [facility] Comment on above: Performed By: #### C P, CBC #### [facility] [address] [place], [place] [id number] Disaster Recovery Consultant: Miranda Estrada MD Chloride [Moles/Vol] 100 mmol/L Normal 98-107 [facility] Comment on above: Performed By: #### C P, CBC #### [facility] [address] [place], [place] [id number] Disaster Recovery Consultant: Miranda Estrada MD CO2 [Moles/Vol] 23 mmol/L Normal 20-31 [facility] Comment on above: Performed By: #### C P, CBC #### [facility] [address] [place], [place] [id number] Disaster Recovery Consultant: Miranda Estrada MD Creatinine [Mass/Vol] 0.75 mg/dL Normal 0.50-0.90 [facility] Comment on above: Performed By: #### C P, CBC #### [facility] [address] [place] [address] Disaster Recovery Consultant: Miranda Estrada MD GFR, Amer >60 Normal >60 [facility] Comment on above: Performed By: #### C P, CBC #### [facility] [address] [place] [address] Disaster Recovery Consultant: Miranda Estrada MD GFR,non Amer >60 Normal >60 [facility] Comment on above: Performed By: #### C P, CBC #### [facility] [address] [place], [place] [id number] Disaster Recovery Consultant: Miranda Estrada MD Glucose [Mass/Vol] 160 mg/dL High 70-99 [facility] Comment on above: Performed By: #### C P, CBC #### [facility] [address] [place], [place] [id number] Disaster Recovery Consultant: Miranda Estrada MD Potassium [Moles/Vol] 4.2 mmol/L Normal 3.7-5.3 [facility] Comment on above: Performed By: #### C P, CBC #### [facility] [address] [place], [place] [id number] Disaster Recovery Consultant: Miranda Estrada MD Protein [Mass/Vol] 8.0 g/dL Normal 6.4-8.3 [facility] Comment on above: Performed By: #### C P, CBC #### [facility] [address] [place], [place] [id number] Disaster Recovery Consultant: Miranda Estrada MD Sodium [Moles/Vol] 136 mmol/L Normal 135-144 [facility] Comment on above: Performed By: #### C P, CBC #### [facility] [address] [place], [place] [id number] Disaster Recovery Consultant: Miranda Estrada MD Staging: Normal [facility] Comment on above: Result Comment: Stag e 1: Some kidney damage normal GFR Stage 2: Mild kidney damage GFR 60-89 Stage 3: Moderate kidney damage GFR 30-59 Stage 4: Severe kidney damage GFR 15-29 Stage 5: Severe kidney damage GFR <15 ESRD - chronic treatment by dialysis or transplant Performed By: #### C P, CBC #### [facility] [address] [place], [place] [id number] Disaster Recovery Consultant: Miranda Estrada MD Urea nitrogen [Mass/Vol] 17 mg/dL Normal 6-20 [facility] Comment on above: Performed By: #### C P, CBC #### [facility] [address] [place] [address] Disaster Recovery Consultant: Miranda Estrada MD Operative Reporton 0 Operative Report MR#: [id number] [facility] Pt. Name: Laina Spain Room #: 0C Discharge Date: Birthdate: 1975 OPERATIVE REPORT DATE OF SURGERY: 09/16/2020 SURGEON: Morgan Jiménez M.D. PREOPERATIVE DIAGNOSIS: Right carpal tunnel syndrome. POSTOPERATIVE DIAGNOSIS: Right carpal tunnel syndrome. OPERATIVE PROCEDURE: Right carpal tunnel release. DESCRIPTION OF PROCEDURE: Under monitored anesthesia care, the patient's right upper extremity was prepped and draped for the proposed procedure. Tourniquet applied to the right proximal humerus, was inflated 250 mmHg following exsanguination of the limb by application of an Esmarch bandage. A 0.5% Marcaine/1% Xylocaine was infiltrated with overlying the carpal tunnel. A small longitudinal incision was made centered over the carpal tunnel. Hemostasis was obtained with the use of bipolar cautery. The palmar fascia incised in line with the skin incision followed by sharply incising the ligament thus entering the carpal tunnel. The distal aspect of the ligament was released under direct visualization with the use of Littler scissors. The proximal aspect was then delineated and then released with a scalpel directed along a grooved nerve protector. The carpal tunnel was then probed ensuring. No remaining restricting fibers of carpal ligament. The nerve appeared grossly normal. The ligament was significantly thickened throughout its course. Wound irrigated with normal saline solution and closed with a 4-0 Novafil established in a simple suture fashion. A sterile bulky hand dressing was applied. There were no complications. The patient was transferred to recovery room in stable condition. Electronically Signed by: Morgan Jiménez M.D. 09/19/2020 10:31 P Morgan Jiménez M.D. Date Dict: 09/16/2020/09:07 A/Morgan Jiménez M.D. Date Trans: 09/16/2020 09:30 A/smitho [id number] Normal [facility] POC GLUCOSE LABon 09-16-2020 Glucose [Mass/Vol] 113 mg/dL High 70-100 [facility] Comment on above: Performed By: #### [id number] #### [facility] [address] [facility]. [address] *SARS-CoV-2 COVID-19on 09-13 [id number] Not Detected Normal Not Detected [facility] Comment on above: Order Comment: The A ptima SARS-CoV-2 assay is a nucleic acid amplification test intended for the qualitative detection of RNA from SARS-CoV-2 isolated and purified from nasopharyngeal ([employer]),oropharyngeal (OP), nasal swab, sputum, and bronchoalveolar lavage (BAL) specimens from patients with signs and symptoms of infection who are suspected of COVID-19. Results are for the identification of SARS-CoV-2 RNA. The SARS-CoV-2 RNA is generally detectable during the acute phase of infection. The Aptima SARS-CoV-2 Assay on the Nexavis and Nexavis Fusion system is intended for use by laboratory personnel specifically instructed and trained in the operation of the Rankin and Nexavis Fusion system. The Aptima SARS-CoV-2 assay is only for use under the Food and Drug Administration Emergency Use Authorization. Testing is limited to laboratories certified under the Clinical Laboratory Improvement Amendments of 1988 (CLIA), 42 U.S.C. ???263a, to perform high complexity tests. Not Detected: Not detected does not preclude SARS-CoV-2 infection and should not be used as the sole basis for patient management decisions. Not detected results must be combined with clinical observations, patient history, and epidemiological information. Performed By: #### [id number] #### [facility] [address] [facility]. [address] XR Shoulder Complete Lefton 03-18-2019 XR Shoulder Complete Left Exam Date/Time: 03/18/2019 15:29 EDT Reason for Exam: Pain, Non Traumatic Report STUDY: XR Shoulder Complete Left; 03/18/2019 3:29 pm INDICATION: Pain, Non Traumatic. COMPARISON: No available comparisons. ACCESSION NUMBER(S): [id number] ORDERING CLINICIAN: Perry Tamayo TECHNIQUE: 5 views FINDINGS: There is no acute fracture or dislocation. The glenohumeral joint space is maintained. The acromiohumeral interval is normal. The AC joint is intact. IMPRESSION: No acute osseous abnormality. FINAL REPORT Dictated: 03/18/2019 3:54 pm Lester Ortiz MD Signed (Electronic Signature): 03/18/2019 3:54 pm Signed by: Lester Ortiz MD Technologist: [facility] Normal [facility] Amylaseon 01-07-2019 Amylase enzyme act/vol 134 Int._Unit/L High 29-103 [facility] Comment on above: Performed By: #### 2 062020 #### MADALYN [employer] [address] [place] [address] Auto Diffon 01-07-2019 Basophils/100 WBC (Bld) 0.9 % Normal 0.0-2.0 [facility] Comment on above: Order Comment: Order Added by Discern Expert. Performed By: #### 2 071253 #### MADALYN RemHemo [address] [place] [address] Eosinophils/100 WBC (Bld) 1.4 % Normal 0.0-11.0 [facility] Comment on above: Order Comment: Order Added by Discern Expert. Performed By: #### 2 [id number] #### MADALYN RemHemo [address] [place] [address] Lymphocytes #/vol (Bld) 2.6 E3/mcL Normal 1.2-3.4 [facility] Comment on above: Order Comment: Order Added by Discern Expert. Performed By: #### 2 440559 #### MADALYN RemHemo [address] [place] [address] Lymphocytes/100 WBC (Bld) 28.4 % Normal 20.0-55.0 [facility] Comment on above: Order Comment: Order Added by Discern Expert. Performed By: #### 2 150387 #### MADALYN RemHemo [address] [place] [address] Monocytes/100 WBC (Bld) 5.5 % Normal 0.0-10.0 [facility] Comment on above: Order Comment: Order Added by Discern Expert. Performed By: #### 2 184879 #### MADALYN MarreroHemo [address] [place] [address] Neutro Absolute 5.8 E3/mcL Normal 1.4-6.5 [facility] Comment on above: Order Comment: Order Added by Discern Expert. Performed By: #### 2 948750 #### MADALYN RemHemo [address] [place] [address] Neutro Auto 63.8 % Normal 37.0-75.0 [facility] Comment on above: Order Comment: Order Added by Discern Expert. Performed By: #### 2 020530 #### MADALYN MarreroHemo [address] [place] [address] CBC w/ Auto Diffon 9 Erythrocyte distribution width Ratio (RBC) 15.8 % High 11.5-14.5 [facility] Comment on above: Performed By: #### 2 106617 #### MADALYN MarreroHemo [address] [place] [address] Hematocrit Volume Fraction (Bld) 39.4 % Normal 36.0-48.0 [facility] Comment on above: Performed By: #### 2 255146 #### MADALYN MarreroHemo [address] [place] [address] Hemoglobin mass conc (Bld) 12.7 g/dL Normal 12.0-16.0 [facility] Comment on above: Performed By: #### 2 971797 #### MADALYN RemHemo [address] [place] [address] MCH Entitic mass (RBC) 25.4 pg Low 27.0-31.0 [facility] Comment on above: Performed By: #### 2 946659 #### MADALYN RemHemo [address] [place] [address] MCHC mass conc (RBC) 32.2 g/dL Low 33.0-37.0 [facility] Comment on above: Performed By: #### 2 535773 #### MADALYN RemHemo [address] [place] [address] MCV Entitic volume (RBC) 78.8 fL Normal 78.0-100.0 [facility] Comment on above: Performed By: #### 2 667336 #### MADALYN RemHemo [address] [place] [address] Platelet mean volume Entitic volume (Bld) 8.1 fL Normal 7.4-11.0 [facility] Comment on above: Performed By: #### 2 106325 #### MADALYN RemHemo [address] [place] [id number] Platelets #/vol (Bld) 291 E3/mcL Normal 130-400 [facility] Comment on above: Performed By: #### 2 740004 #### MADALYN RemHemo [address] [place], [place] [address] RBC #/vol (Bld) 5.00 E6/mcL Normal 3.90-5.40 [facility] Comment on above: Performed By: #### 2 571842 #### MADALYN RemHemo [address] [place], [place] [address] WBC #/vol (Bld) 9.1 E3/mcL Normal 3.6-11.0 [facility] Comment on above: Performed By: #### 2 195034 #### MADALYN RemHemo [address] [place], [place] [phone] CMPon 01-07-2019 Albumin mass conc 4.1 g/dL Normal 3.4-5.0 [facility] Comment on above: Performed By: #### 2 416445 #### MADALYN [employer] [address] [place], [place] [address] Albumin/Globulin mass ratio 1.3 {ratio} Normal 1.1-1.9 [facility] Comment on above: Performed By: #### 2 110618 #### MADALYN [place] [address] Alk Phos 76 Int._Unit/L Normal 33-110 [facility] Comment on above: Performed By: #### 2 437533 #### [facility] [employer] [address] [place] [address] ALT enzyme act/vol 7 Int._Unit/L Normal 7-45 [facility] Comment on above: Performed By: #### 2 832544 #### MADALYN [employer] [address] [place] [address] 28[address] Anion gap molar conc 11 mmol/L Normal 10-20 [facility] Comment on above: Performed By: #### 2 123545 #### MADALYN [employer] [address] [place] [address] 34176 AST enzyme act/vol 10 Int._Unit/L Normal 9-[address] [facility] Comment on above: Performed By: #### 2 153360 #### MADALYN [employer] [address] [place] [address] Bili Total 0.24 mg/dL Normal 0.00-1.20 [facility] Comment on above: Performed By: #### 2 678463 #### MADALYN [employer] [address] [place] [address] Calcium mass conc 9.4 mg/dL Normal 8.6-10.3 [facility] Comment on above: Performed By: #### 2 199053 #### MADALYN [employer] [address] [place] [address] Chloride molar conc 106 mmol/L Normal 98-107 [facility] Comment on above: Performed By: #### 2 584488 #### MADALYN [employer] [address] [place] [address] 299[address] CO2 molar conc 25.0 mmol/L Normal 21.0-32.0 [facility] Comment on above: Performed By: #### 2 360995 #### MADALYN [employer] [address] [place] [address] Creatinine mass conc 0.8 mg/dL Normal 0.5-1.1 [facility] Comment on above: Performed By: #### 2 966370 #### MADALYN [employer] [address] [place] [address] 76[address] Globulin mass conc (S) 3.0 g/dL Normal 2.0-4.0 [facility] Comment on above: Performed By: #### 2 591159 #### MADALYN [employer] [address] [place] [address] 39090 Glucose mass conc 129 mg/dL High 70-99 [facility] Comment on above: Performed By: #### 2 965013 #### [facility] [employer] [address] [place] [address] 387[address] Potassium molar conc 4.2 mmol/L Normal 3.5-5.3 [facility] Comment on above: Performed By: #### 2 620057 #### [facility] [employer] [address] [place] [address]93 Protein mass conc 7.3 g/dL Normal 6.4-8.2 [facility] Comment on above: Performed By: #### 2 101775 #### [facility] [employer] [address] [place], [place] [address] Sodium molar conc 138 mmol/L Normal 136-145 [facility] Comment on above: Performed By: #### 2 286007 #### [facility] [employer] [address] [place] [address] Urea nitrogen mass conc 10 mg/dL Normal 6-23 [facility] Comment on above: Performed By: #### 2 602763 #### [facility] [employer] [address] [place] [address] Urea nitrogen/Creatinine mass ratio 12.5 ratio Normal 5.4-30.0 [facility] Comment on above: Performed By: #### 2 732170 #### [facility] [employer] [address] [place] [address] 32787 Lipase Levelon 01-07-2019 Lipase Lvl 35 Int._Unit/L Normal 9-82 [facility] Comment on above: Performed By: #### 2 534615 #### MADALYN [employer] [address] [place], [place] [address] Morphon 01-07-2019 RBC morphology finding Nom (Bld) SEE MORPHOLOGY Normal [facility] Comment on above: Order Comment: Order Added by Discern Expert. Performed By: #### 1 [id number] #### [facility] [address] [place], [place] [address] Hypochromasia 1+ Normal [facility] Comment on above: Order Comment: Order Added by Discern Expert. Performed By: #### 1 [id number] #### MADALYN RemHemo [address] [place], [place] [address] eGFRon 01-07-2019 GFR/1.73 sq M predicted among non-blacks MDRD vol rate/area (S/P/Bld) mL/min/{1.73_m2} Normal [facility] Comment on above: Order Comment: Order added by Discern Expert. Performed By: #### 1 [id number] #### MADALYN [employer] [address] [place] [id number] zzplt morphon 01-07-2019 Platelet morphology finding Nom (Bld) NORMAL Normal [facility] Comment on above: Performed By: #### 9 [id number] #### MADALYN RemHemo [facility] [place] [address] Platelets #/vol (Bld) NORMAL Normal [facility] Comment on above: Performed By: #### 9 [id number] #### MADALYN RemHemo [facility] [place] [id number] CLOSTRIDIUM DIFFICILE PCRon 09-30-2018 C difficile Toxin Gene CRISTÓBAL Positive Abnormal Negative [facility] Comment on above: Result Comment: Nany small Requested FlagToxigenic C difficile: PositiveEpidemic Strain Bl/NAP1/027: Presumptive Negative Performed By: #### C DIFNAA ####[facility] [address] [place] [address] [place] CBC AUTO DIFFon 09-28-2018 Basophils Auto #/vol (Bld) 0.0 103/ul Normal 0.0-0.[address] [facility] Comment on above: Performed By: #### C BC ####[facility] [address] [place], [place] [address]ken [place] Basophils/100 WBC Auto (Bld) 0.3 % Normal 0.2-2.[address] [facility] Comment on above: Performed By: #### C BC ####[facility] [address] [place], [place] [address]ken [place] Eosinophils Auto #/vol (Bld) 0.3 103/ul Normal 0.0-0.7 [facility] Comment on above: Performed By: #### C BC ####[facility] [address] [place] [address] [place] Eosinophils/100 WBC Auto (Bld) 3.1 % Normal 0.9-7.[address] [facility] Comment on above: Performed By: #### C BC ####[facility] [address] [place] [address] [place] Erythrocyte distribution width Auto Ratio (RBC) 16.8 % Critically high 11.0-15.[address] [facility] Comment on above: Performed By: #### C BC ####[facility] [address] [place] [address] [place] Hematocrit Auto Volume Fraction (Bld) 39.1 % Normal 36.0-48.[address] [facility] Comment on above: Performed By: #### C BC ####[facility] [address] [place] [address] [place] Hemoglobin mass conc (Bld) 12.3 g/dL Normal 12.0-16.[address] [facility] Comment on above: Performed By: #### C BC ####[facility] [address] [place] [address] [place] IG # 0.05 10e3/ul Critically high 0.00-0.[address] [facility] Comment on above: Performed By: #### C BC ####[facility] [address] [place] [address] [place] IG % 0.5 % Normal 0.0-0.[address] [facility] Comment on above: Performed By: #### C BC ####[facility] [address] [place] [address] [place] Lymphocytes Auto #/vol (Bld) 2.7 103/ul Normal 1.2-3.[address] [facility] Comment on above: Performed By: #### C BC ####[facility] [address] [place] [address] [place] Lymphocytes/100 WBC Auto (Bld) 27.5 % Normal 20.5-60.[address] [facility] Comment on above: Performed By: #### C BC ####[facility] Vn[address]az[address] [place] MANUAL DIFF REQ NO Normal [facility] Comment on above: Performed By: #### C BC ####[facility] Fgojjoonws2536 [address] [place] MCH Auto Entitic mass (RBC) 23.9 pg Critically low 26.7-34.[address] [facility] Comment on above: Performed By: #### C BC ####[facility] [address] [place] [address] [place] MCHC Auto mass conc (RBC) 31.5 g/dL Normal 29.9-35.[address] [facility] Comment on above: Performed By: #### C BC ####[facility] [address] [place] [address] [place] MCV Auto Entitic volume (RBC) 76.1 fL Critically low 81.0-99.[address] [facility] Comment on above: Performed By: #### C BC ####[facility] [address] [place] [address] [place] Monocytes Auto #/vol (Bld) 0.5 103/ul Normal 0.3-0.[address] [facility] Comment on above: Performed By: #### C BC ####[facility] [address] [place] [address] [place] Monocytes/100 WBC Auto (Bld) 5.0 % Normal 1.7-12.[address] [facility] Comment on above: Performed By: #### C BC ####[facility] [address] [place] [address] [place] Neutrophils Auto #/vol (Bld) 6.2 103/ul Normal 1.4-6.[address] [facility] Comment on above: Performed By: #### C BC ####[facility] [address] [place] [address] [place] Neutrophils/100 WBC Auto (Bld) 63.6 % Normal 43.0-75.[address] [facility] Comment on above: Performed By: #### C BC ####[facility] Mgmemwhzhw5455 [address] [place] Platelet mean volume Auto Entitic volume (Bld) 9.0 fL Critically low 9.5-13.[address] [facility] Comment on above: Performed By: #### C BC ####[facility] [address] [place] [address] [place] Platelets Auto #/vol (Bld) 280 103/ul Normal 150-[address] [facility] Comment on above: Performed By: #### C BC ####[facility] [address] [place] [address] [place] RBC Auto #/vol (Bld) 5.14 106/ul Normal 4.20-5.[address] [facility] Comment on above: Performed By: #### C BC ####[facility] [address] [place] [address] [place] WBC Auto #/vol (Bld) 9.8 103/ul Normal 4.0-11.[address] [facility] Comment on above: Performed By: #### C BC ####[facility] [address] [place] [address] [place] CULTURE STOOLon 09-28-2018 CULTURE STOOL Culture Observations : NO GROWTH OF SALMONELLA, SHIGELLA, OR YERSINIA AT 72 HOURS. Culture Observations: NO GROWTH OF CAMPYLOBACTER, STAPHYLOCOCCUS, OR E.COLI 0157 AT [address] [facility] Comment on above: Performed By: #### S TOOLCX ####[facility] [address] [place] [address] [place] ER URINE PROFILEon 8 BILIRUBIN Negative Normal NEGATIVE [facility] Comment on above: Performed By: #### ALBERT LYONS ####[facility] [address] [place] [address] [place] BLOOD Negative Normal NEGATIVE [facility] Comment on above: Performed By: #### ALBERT LYONS ####[facility] [address] [place] [address] [place] CLARITY SL CLOUDY Normal [facility] Comment on above: Performed By: #### ALBERT LYONS ####[facility] [address] [place] [phone] COLOR YELLOW Normal YELLOW [facility] Comment on above: Performed By: #### ALBERT LYONS ####[facility] [address] [place] [phone] ERUAHD A micrscopic examina tion will be performed if indicated. Normal [facility] Comment on above: Performed By: #### ALBERT LYONS ####[facility] Jnyftiyltd[address] [place] GLUCOSE Negative Normal NEGATIVE [facility] Comment on above: Performed By: #### ALBERT LYONS ####[facility] Rufpvxeubj5290 [address] [place] KETONES Negative Normal NEGATIVE [facility] Comment on above: Performed By: #### ALBERT LYONS ####[facility] Rebkzfhkpm2859 [address] [place] LEUKOCYTES TRACE Normal NEGATIVE [facility] Comment on above: Performed By: #### ALBERT LYONS ####[facility] Zwwheyxish7374 [address] [place] NITRITE Negative Normal NEGATIVE [facility] Comment on above: Performed By: #### ALBERT LYONS ####[facility] Qgwsaycipb0110 [address] [place] pH 5.5 Normal 5-[address] [facility] Comment on above: Performed By: #### ALBERT LYONS ####[facility] Toslmpdoav0228 [address] [place] Protein mass conc Negative Normal [facility] Comment on above: Performed By: #### DENNIS LYONSRO ####[facility] [address] [place] [id number] SPEC GRAVITY 1.025 Normal 1.005-<=1. [address] [facility] Comment on above: Performed By: #### ALBERT LYONS ####[facility] Xapvhobbrw[address] [place] UR MICRO IND INDICATED Normal [facility] Comment on above: Performed By: #### ALBERT LYONS ####[facility] Sqsuwzbwra0678 [address] [place] UROBILINOGEN 0.2 EU/dl Normal [facility] Comment on above: Performed By: #### ALBERT LYONS ####[facility] Dcosmfvgdn0204 [address] [place] LIPASEon 09-28-2018 Lipase enzyme act/vol 225.0 U/L Normal 23.0-300.[address] [facility] Comment on above: Performed By: #### L DAVID CMP ####[facility] [address] [place] [address] [place] OCC BLD IMMUNO SCREENon OCCULT BLOOD Positive Normal NEGATIVE [facility] Comment on above: Performed By: #### O BSCRN ####[facility] Wwlvayxaob0[address] [place] PROF 14(COMP METB)on 018 Albumin mass conc 3.6 g/dL Normal 3.5-5.0 [facility] Comment on above: Performed By: #### L IPA, CMP ####[facility] [address] [place] [address] [place] Albumin/Globulin mass ratio 0.7 {ratio} Normal [facility] Comment on above: Performed By: #### L IPA, CMP ####[facility] Breyqmhiay[address] [place] ALP enzyme act/vol 80 U/L Normal 38-[address] [facility] Comment on above: Performed By: #### L IPA, CMP ####[facility] Fprnpwovzb[address] [place] ALT enzyme act/vol 16 U/L Normal 9-[address] [facility] Comment on above: Performed By: #### L IPA, CMP ####[facility] [address] [place] [id number] Anion gap 3 molar conc 12.9 mmol/L Normal [facility] Comment on above: Performed By: #### L IPA, CMP ####[facility] Hy[address]ec[address] [place] [id number] AST enzyme act/vol 8 U/L Critically low 14-36 [facility] Comment on above: Performed By: #### L IPA, CMP ####[facility] Ztjxaklpin[address] [place] Bilirubin Ql (U) 0.3 mg/dL Normal 0.2-1.[address] [facility] Comment on above: Performed By: #### L IPA, CMP ####[facility] [address] [place] [address] [place] Calcium mass conc 9.4 mg/dL Normal 8.4-10.[address] [facility] Comment on above: Performed By: #### L IPA, CMP ####[facility] [address] [place] [address] [place] Chloride molar conc 103 mmol/L Normal 98-[address] [facility] Comment on above: Performed By: #### L IPA, CMP ####[facility] [address] [place] [address] [place] CO2 molar conc 25.0 mmol/L Normal 22.0-30.[address] [facility] Comment on above: Performed By: #### L IPA, CMP ####[facility] [address] [place] [address] [place] Creatinine mass conc 1.07 mg/dL Critically high 0.52-1.[address] [facility] Comment on above: Performed By: #### L IPA, CMP ####[facility] [address] [place], [place] [address] EGFR-AF BELIZEAN >60 Normal >=[address] [facility] Comment on above: Performed By: #### L IPA, CMP ####[facility] [address] [place], [place] [address] EGFR-NON AF BELIZEAN 57 mL/min/1.73m2 Critically low >=60 [facility] Comment on above: Performed By: #### L IPA, CMP ####[facility] [address] [place] [phone] Globulin Calculated mass conc (S) 5.0 g/dL Normal [facility] Comment on above: Performed By: #### L IPA, CMP ####[facility] [address] [place] [phone] Glucose mass conc 138 mg/dL Critically high 74-106 [facility] Comment on above: Performed By: #### L IPA, CMP ####[facility] Qvnmsjhthw[address] [place] Potassium molar conc 3.9 mmol/L Normal 3.4-5.0 [facility] Comment on above: Performed By: #### L IPA, CMP ####[facility] Ofqfztboqv[address] [place] Protein mass conc 8.6 g/dL Critically high 6.1-8.2 [facility] Comment on above: Performed By: #### L IPA, CMP ####[facility] Qcxpavacxs2449 [address] [place] Sodium molar conc 137 mmol/L Normal 137-145 [facility] Comment on above: Performed By: #### L IPA, CMP ####[facility] Akehhizdqg6063 [address] [place] Urea nitrogen mass conc 14.0 mg/dL Normal 7.0-17.0 [facility] Comment on above: Performed By: #### L IPA, CMP ####[facility] Aueusnmjtk5274 [address] [place] Urea nitrogen/Creatinine mass ratio 13.1 mg/mg Normal [facility] Comment on above: Performed By: #### L IPA, CMP ####[facility] [address] [place] [phone] URINE MICROSCOPIC ONLYon BACTERIA TRACE Normal NONE SEEN [facility] Comment on above: Performed By: #### DENNIS LYONSRO ####[facility] Ltkkbaucrx[address] [place] CAST NONE SEEN Normal NONE SEEN [facility] Comment on above: Performed By: #### ALBERT LYONS ####[facility] [address] [place] [id number] CRYSTALS NONE SEEN Normal NONE SEEN [facility] Comment on above: Performed By: #### DENNIS LYONSRO ####[facility] Kuymaunenb[address]328 [address] [place] CULTURE NOT INDICATED Normal [facility] Comment on above: Performed By: #### ALBERT LYONS ####[facility] Xrekwsjfvt7578 [address] [place] EPITHELIAL CELLS FEW Normal [facility] Comment on above: Performed By: #### ALBERT LYONS ####[facility] Ivswgtqqby8802 [address] [place] INR Coag RelTime (Bld) 0-2 Normal 0-[address] [facility] Comment on above: Performed By: #### ALBERT LYONS ####[facility] [address] [place] [id number] MUCOUS NONE SEEN Normal NONE SEEN [facility] Comment on above: Performed By: #### ALBERT LYONS ####[facility] Aiaptsifks7844 [address] [place] WBC 2-5 Normal NONE SEEN [facility] Comment on above: Performed By: #### DENNIS LYONSRO ####[facility] Tjhimvcjda3759 [address] [place] XR ABD FLAT UP/PA Lkae 09-28 XR ABD FLAT UP/PA [address] [place] [address] Patient: LAINA SPAINYoseph Exam Date: 09/28/2018DOB: 1975 Gender:F : DR HAFSA SLATER . Admission #: [id number] : Order #: [id number] HERE TO VIEW EXAM RADIOLOGY REPORT PROCEDURE: RADIOGRAPH ABDOMEN FLAT/UPRIGHT AND PA CHEST COMPARISON: None. INDICATIONS: Acute generalized abdominal pain, nausea FINDINGS: LUNGS: No infiltrate, pneumothorax, or pleural effusion.MEDIASTINUM: No abnormal widening. BOWEL GAS PATTERN: Non-obstructed. No abnormal dilation or suspicious fluid levels.FREE AIR: None.CALCIFICATIONS: None significant.BONES: No fracture or visible bone lesion.OTHER: Negative. CONCLUSION: 1. No acute cardiopulmonary process.2. No bowel obstruction or suspicious abdominal findings. Dictated by: Catalina Valdes M.D. on 09/28/2018 at 16:11 Approved by: Catalina Valdes M.D. on 09/28/2018 at 16:12 Normal [facility] XR WRIST RT MIN 3 Von 2017 XR WRIST RT MIN 3 [address] [place] [address] Patient: LAINA SPAIN Exam Date: 08/31/2018DOB: 1975 Gender:F : DR. LEE APONTE D.O. Admission #: [id number] : Order #: [id number] HERE TO VIEW EXAM RADIOLOGY REPORT PROCEDURE: RADIOGRAPH WRIST RIGHT MIN 3 VIEWS COMPARISON: None. INDICATIONS: Acute right wrist pain, chronic paresthesia FINDINGS: BONES: No fracture, acute abnormality, or significant arthropathy. SOFT TISSUES: No visible soft tissue swelling or radiopaque foreign body. OTHER: Negative. CONCLUSION: Normal examination. Dictated by: Catalina Valdes M.D. on 08/31/2018 at 22:59 Approved by: Catalina Valdes M.D. on 08/31/2018 at 23:01 Normal [facility] BUNon 03-21-2018 Urea nitrogen mass conc 7.0 mg/dL Normal 7.0-17.0 [facility] Comment on above: Performed By: #### B UN, CREA ####[facility] Mgxckxfwtd23[address] CBC AUTO DIFFon 03-21-2018 Basophils Auto #/vol (Bld) 0.0 103/ul Normal 0.0-0.[address] [facility] Comment on above: Performed By: #### C BC ####[facility] [address] [place] [address] Sheree Basophils/100 WBC Auto (Bld) 0.2 % Normal 0.2-2.[address] [facility] Comment on above: Performed By: #### C BC ####[facility] [address] [place] [address] Sheree Eosinophils Auto #/vol (Bld) 0.1 103/ul Normal 0.0-0.[address] [facility] Comment on above: Performed By: #### C BC ####[facility] [address] [place] [address] Sheree Eosinophils/100 WBC Auto (Bld) 1.1 % Normal 0.9-7.[address] [facility] Comment on above: Performed By: #### C BC ####[facility] [address] [place] [address] Sheree Erythrocyte distribution width Auto Ratio (RBC) 16.3 % Critically high 11.0-15.[address] [facility] Comment on above: Performed By: #### C BC ####[facility] [address] [place] [address] Sheree Hematocrit Auto Volume Fraction (Bld) 28.3 % Critically low 36.0-48.[address] [facility] Comment on above: Performed By: #### C BC ####[facility] [address] [place] [address] Sheree Hemoglobin mass conc (Bld) 8.4 g/dL Critically low 12.0-16.[address] [facility] Comment on above: Performed By: #### C BC ####[facility] [address] [place] [address] Sheree IG # 0.06 10e3/ul Critically high 0.00-0.[address] [facility] Comment on above: Performed By: #### C BC ####[facility] [address] [place] [id number] Sheree IG % 0.6 % Critically high 0.0-0.[address] [facility] Comment on above: Performed By: #### C BC ####[facility] [address] [place] [place] [id number] Sheree Lymphocytes Auto #/vol (Bld) 2.0 103/ul Normal 1.2-3.[address] [facility] Comment on above: Performed By: #### C BC ####[facility] [address] [place], [place] [address]Gerken Sheree Lymphocytes/100 WBC Auto (Bld) 19.6 % Critically low 20.5-60.[address] [facility] Comment on above: Performed By: #### C BC ####[facility] [address] [place], [place] [address]Gerken Sheree MANUAL DIFF REQ NO Normal [facility] Comment on above: Performed By: #### C BC ####[facility] [address] [place], [place] [address]Gerken Sheree MCH Auto Entitic mass (RBC) 21.9 pg Critically low 26.7-34.[address] [facility] Comment on above: Performed By: #### C BC ####[facility] [address] [place], [place] [address]Gerken Sheree MCHC Auto mass conc (RBC) 29.7 g/dL Critically low 29.9-35.[address] [facility] Comment on above: Performed By: #### C BC ####[facility] [address] [place], [place] [address]Gerken Sheree MCV Auto Entitic volume (RBC) 73.9 fL Critically low 81.0-99.[address] [facility] Comment on above: Performed By: #### C BC ####[facility] [address] [place], [place] [address]Gerken Sheree Monocytes Auto #/vol (Bld) 0.6 103/ul Normal 0.3-0.[address] [facility] Comment on above: Performed By: #### C BC ####[facility] [address] [place], [place] [address]Qdpivb Sheree Monocytes/100 WBC Auto (Bld) 5.7 % Normal 1.7-12.[address] [facility] Comment on above: Performed By: #### C BC ####[facility] [address] [place], [place] [address]Xwrfce Sheree Neutrophils Auto #/vol (Bld) 7.5 103/ul Critically high 1.4-6.[address] [facility] Comment on above: Performed By: #### C BC ####[facility] [address] [place] [address]Kligai Sheree Neutrophils/100 WBC Auto (Bld) 72.8 % Normal 43.0-75.[address] [facility] Comment on above: Performed By: #### C BC ####[facility] [address] [place] [address]Jdifps Sheree Platelet mean volume Auto Entitic volume (Bld) 10.0 fL Normal 9.5-13.[address] [facility] Comment on above: Performed By: #### C BC ####[facility] [address] [place] [address]Gcqyoq Sheree Platelets Auto #/vol (Bld) 282 103/ul Normal 150-[address] [facility] Comment on above: Performed By: #### C BC ####[facility] [address] [place] [address]Xftsoz Sheree RBC Auto #/vol (Bld) 3.83 106/ul Critically low 4.20-5.[address] [facility] Comment on above: Performed By: #### C BC ####[facility] [address] [place] [address]Jlryyw Sheree WBC Auto #/vol (Bld) 10.3 103/ul Normal 4.0-11.[address] [facility] Comment on above: Performed By: #### C BC ####[facility] [address] [place] [address]Ocfdzt Sheree CREATININEon 03-21-2018 Creatinine mass conc 0.68 mg/dL Normal 0.52-1.[address] [facility] Comment on above: Performed By: #### B UN, CREA ####[facility] [address] [place], [place] [address]Oeelhj Sheree EGFR-AF BELIZEAN >60 Normal >=[address] [facility] Comment on above: Performed By: #### B UN, CREA ####[facility] [address] [place], [place] [address]Tzhejj Sheree EGFR-NON AF BELIZEAN >60 Normal >=[address] [facility] Comment on above: Performed By: #### B UN, CREA ####[facility] [address] [place], [place] [address]Gaworz Sheree PREG HCG QUALon 03-20-2018 , QUAL Negative Normal NEGATIVE [facility] Comment on above: Performed By: #### P REG ####[facility] [address] [place], [place] [address]Gerken Sheree TYPE AND SCREENon 03-18-2018 TYPE AND SCREEN Negative Normal [facility] Comment on above: Performed By: #### T NS ####[facility] S[address] [place] [address]Vuthso Sheree PREG HCG QUALon 02-06-2018 , QUAL Negative Normal NEGATIVE [facility] Comment on above: Performed By: #### P REG ####[facility] [address] [place] [address]Ccaevq Karen US PELVIS AND TRANSVAGon US PELVIS AND TRANSVAG [address] [place] [address] Patient: LAINA SPAIN Exam Date: 01/18/2018DOB: 1975 Gender:F : DR YAYA FRIEDMAN . Admission #: [id number] : Order #: [id number] HERE TO VIEW EXAM RADIOLOGY REPORT PROCEDURE: ULTRASOUND PELVIS AND TRANSVAGINAL COMPARISON: US PELVIS AND TRANSVAG, 11/01/2017. INDICATIONS: Cyst of left ovary TECHNIQUE: Transabdominal sonographic examination. Transvaginal sonographic examination.FINDINGS: UTERUS: Decrease in size of the small anechoic area within the posterior fundal myometrium, 5 x 3 x 3 mm; possibly a cyst. Slightly heterogeneous myometrium. Uterus: 11.2 x 6.5 x 5.1 cm (191 cc)ENDOMETRIUM: Normal homogeneous appearance. Endometrial thickness: 8.3 mm RIGHT OVARY: Normal size and appearance. Blood flow present within ovary on color Doppler. Right ovary: 5.6 x 2.6 x 1.6 cm (5.5 cc) LEFT OVARY: Normal size and appearance, and contains a 2.3 cm simple cyst. Blood flow is present within ovary on Color Doppler. Left ovary: 2.9 x 2.3 x 2.7 cm (9.5 cc) CUL-DE-SAC: Unremarkable. No significant free fluid.BLADDER: Unremarkable.OTHER: None. CONCLUSION: 1. 2.3 cm simple appearing left ovarian cyst; grossly stable. Dictated by: Catalina Valdes M.D. on 01/18/2018 at 16:52 Approved by: Catalina Valdes M.D. on 01/18/2018 at 17:05 Normal [facility] XR L-SPINE 2 - 3 VIEWSon XR L-SPINE 2 - 3 VIEWS [address] [place] [address] Patient: LAINA SPAIN Exam Date: 12/09/2017DOB: 1975 Gender:F : PASCUAL GARNER Admission #: [id number] : DR KRISTEN HIRSCH D.O. Order #: [id number] HERE TO VIEW EXAM RADIOLOGY REPORT PROCEDURE: RADIOGRAPH L-SPINE 2-3 VIEWS COMPARISON: XR L-SPINE 2 - 3 VIEWS, 08/27/2014. INDICATIONS: Acute lumbar spine pain after fall FINDINGS: BONES: No acute fracture or spondylolisthesis. Mild degenerative spondylosis and facet osteoarthropathy no significant L4 through S1DISC SPACES: Mild disc space narrowing L4-L5 and L5-L8GKSESLWJOFL: Negative. No paraspinous abnormality is seen. OTHER: Negative. CONCLUSION: 1. No acute abnormality Dictated by: Miranda Elam M.D. on 12/09/2017 at 14:41 Approved by: Miranda Elam M.D. on 12/09/2017 at 14:42 [facility] Letter Text[facility] [address] [place], [place] [address]Mxuom: [phone]: [facility] [place], [place] [address]Xzbnn: [phone]: [address] [address]Jfndd: [phone]: Toll Free: [phone] [email or web address] Eligio Johnston M.D., Dwight Marinelli M.D.Maximino Hinson M.D.Perry Hernandez D.O..Boy Sandhu M.D. FACROSaju A. Rajan, M.D.September 06, 2017Laina Spain[address] [address]Vdbh Ms. Spain,You missed your scheduled appointment on Wednesday September 06, 2017. Pleasecall our office to reschedule. If you need to cancel any futureappointments, please call to give us 24 hour notice so that we can offer yourappointment to another patient.Sincerely,Perry Webster M.D. Normal [facility]2017 CN[facility] Letter TextNorth [facility] [address] [place], [place] [address]Zlglk: [phone]: [facility] [place], [place] [address]Ahfhc: [phone]: [address] [address]Wisba: [phone]: Toll Free: [phone] [email or web address] Eligio Johnston M.D., Dwight Marinelli M.D.Maximino Hinson M.D.Perry Hernandez D.O..Jaden Pemberton M.D.Alfred Genao M.D. Darshana David M.D.August 30, 2017Laina [address] [place] [address]Eoyy Ms. Spain,You missed your scheduled appointment on Wednesday August 30, 2017. Pleasecall our office to reschedule. If you need to cancel any futureappointments, please call to give us 24 hour notice so that we can offer yourappointment to another patient.Sincerely,Perry Webster M.D. Normal [facility] ED Provider Noteson 06-28-20 ED Provider Notes Encounter Department : [facility] EMERGENCY DEPARTMENTED Provider Notes by Miranda Rendon MD at 06/28/2017 1:38 PMAuthor: ARIN Suttonervice: Emergency MedicineAuthor Type: ED PhysicianFiled: 06/30/2017 6:22 PMDate of Service: 06/28/2017 1:38 PMStatus: SignedEditor: Miranda Rendon MD (ED Physician)I discussed this patient's history and physical findings and a agree with the with PhysicianAssistant's assessment as well as performed an independent assessment and coordinated care withPhysician [employer] Specialist's plan of care.HISTORY OF PRESENT ILLNESS:Laina Spain is a 42 y.o. female who presents in bed 1 with complaint of low back pain. Patientreports she is chronically been in pain management and is out of medications. She plays of no newsymptoms.PHYSICAL EXAM:Lopez Physical Exam Findings:ED Triage OthubgJV82/08/17 7943432/54Upok64/08/17 629559.7 ?F (36.5 ?C)Heart Rate06/28/17 637110Rinw59/08/17 931203JcU858/08/17 1608900 %Mwfqgx78/08/17 7457466 lb (95.3 kg)Jonh Coma Scale Score06/28/17 527615OCG (Calculated)06/28/17 211522.1General: Well-developed, well-nourished overweight female.Cardiac: Regular rate. Regular rhythm.Chest: Clear and equal breath sounds.Abdomen: Soft and nontender.Back: Lumbar paraspinal tenderness.ED LABS/IMAGING/EKG/PROCEDURES: NoneED COURSE/MEDICAL DECISION MAKING/PLAN:Medical records were reviewed.Prescription history in NARx was reviewed. NARx Score: NARX Narcotic: 240 Stimulants: 000 Sedative: 110.Repeat VS: BP 139/67 Pulse 70 Temp 97.7 ?F (36.5 ?C) Resp 16 Ht 5' 4 (1.626 m) Wt 210 lb(95.3 kg) LMP 06/15/2017 SpO2 99% BMI 36.05 kg/m2.Patient with chronic low back pain presents stating that she is out of her medications. Patientwas advised that she would not be prescribed prescription narcotics for her chronic back pain. Herprescription history was reviewed and NARx. She will be given limited refills on her Cymbalta,Neurontin and Mobic.FINAL IMPRESSION:ICD-10-CM1.Chroni c low back pain with bilateral sciatica, unspecified back pain sshwjepqbxK67.41G89.29M54.42 2.Medication stwtsnC94.0Electronicallysig rosina by: Miranda Rendon M.D., 06/30/2017Dapriya Rendon MD06/30/[address] [facility] ED Provider Notes Encounter Department : [facility] EMERGENCY DEPARTMENTED Provider Notes by Travon Goff PA-C at 06/28/2017 1:05 PMAuthor: KUSHAL OakleyCService: Emergency MedicineAuthor Type: Physician AssistantFiled: 06/28/2017 9:35 PMDate of Service: 06/28/2017 1:05 PMStatus: SignedEditor: Travon Goff PA-C (Physician [employer] Specialist)Cosigner: Miranda Rendon MD at 06/30/20176:22 PMEmergency Department Provider NoteTriage Chief Complaint:Chief ComplaintPatient presents with -Back PainHPI:Laina Spain is a 42 y.o. female who presents to the Emergency Department room 1 complaining ofher chronic low back pain that radiates into her posterior thighs that is been worse the last 4days. She moved here from [facility] 5 days ago and has run out of her medications includingPercocet, Mobic, Neurontin and Cymbalta. She says she is having a hard time finding a new doctor.She was unclear why she left without getting a refill on her medication. She denies new injury andstates that her pain is an 8/10 sharp stabbing pain. She denies groin numbness, bowel or bladderchanges or incontinence. She denies recent fever cough runny nose or other cold or flu symptoms.REVIEW OF SYSTEMS:Review of SystemsConstitutional: Negative for fever.Respiratory: Negative for cough and shortness of breath.Cardiovascular: Negative for chest pain.Gastrointestinal: Negative for abdominal pain and nausea.Musculoskeletal: Positive for back pain.Skin: Negative for rash and wound.Review of systems otherwise negativeALLERGIES:TramadolCU RRENT MEDICATIONS:Prior to Admission medicationsMedicationSigStar t DateEnd DateTaking?Authorizing ProviderDULoxetine (CYMBALTA) 30 mg delayed-release capsuleTake 30 mg by mouth daily.YesHistoricalProvider, MDgabapentin (NEURONTIN) 400 mg capsuleTake 800 mg by mouth 3 times daily.YesHistoricalProvider, MDmeloxicam (MOBIC) 7.5 mg tabletTake 15 mg by mouth daily.YesHistorical Provider, oxyCODONE-acetaminophen (PERCOCET) 5-325 mg per tabletTake 1 tablet by mouth every 12hours.YesHistorical Provider, ASHLEYAST MEDICAL HISTORY:Past Medical History:DiagnosisDate -Depression -SciaticaSURGICAL HISTORY:Past Surgical History:ProcedureLateralityD ate -CHOLECYSTECTOMY -TUBAL LIGATIONFAMILY HISTORY:No family history on file.SOCIAL HISTORY:Social HistorySocial History -Marital status:DivorcedSpouse name:N/A -Number of children:N/A -Years of education:N/ASocial History Main Topics -Smoking status:Never Smoker -Smokeless tobacco:Never Used -Alcohol useYesComment: occ -Drug use:No -Sexual activity:Not AskedOther TopicsConcern -NoneSocial History Narrative -NoneThe above past medical conditions, family history, social history reviewed and verified by me.PHYSICAL EXAMINATION:Vital Signs:ED Triage CkjbvgSS26/08/17 4070657/70Igxj92/08/17 049691.7 ?F (36.5 ?C)Heart Rate06/28/17 986052Dqyg60/08/17 906229TbA813/08/17 4310135 %Cxxbwa59/08/17 2309928 lb (95.3 kg)Rayle Coma Scale Score06/28/17 424197GFO (Calculated)06/28/17 182074.1Constitutional: Obese, apparent moderate discomfort, alertEyes: PER, conjunctiva normalNeck: Normal Neck with Full range of motion, No tenderness, Supple, No stridor.HENT: Throat is clear. Oral mucosa is moist. Bilateral external ears are normal. External nose isnormal.Cardiovascular: Regular rate and rhythm, no murmursRespiratory: Breath sounds clear bilaterally. No wheezing, rales, or rhonchi. No respiratorydistress. No accessory muscle use.Abdomen: Soft, non-tender, no distension, no guarding or rebound. Bowel sounds are normal.Musculoskeletal: No edema, no tenderness, no deformities, no CVA tenderness. Back-there is no signof acute injury or infection to her back but there is tenderness to even light touch across the lowback.Skin: Warm and dryExtremities: Intact distal pulses, No edema, No tenderness, No cyanosis. Deep tendon reflexes are2+ bilaterally at the knees and she has negative straight leg lifts.Neurological: No focal deficits or lateralizing signs, Normal speech,Psychiatric: Normal mood, affect, and judgement.RADIOLOGY/IMAGING: No results found for this visit on 06/28/17.DIAGNOSTIC DATA:Labs Reviewed - No data to displayPROCEDURES:NoneHOSPIT AL COURSE:The patient was reexamined and reassessed by myself as well as ancillary staff several times duringthe Emergency Department visit. Every effort was made to address the patient's comfort and ongoingneeds as well as any change in the patient's condition.Pertinent labs and imaging studies were reviewed by me. (See chart for details).Course AND Medical Decision Making:BP 139/67 Pulse 70 Temp 97.7 ?F (36.5 ?C) Resp 16 Ht 5' 4 (1.626 m) Wt 210 lb (95.3 kg) LMP 06/15/2017 SpO2 99% BMI 36.05 kg/s5Ccguhuzlr in the ED included:Medications - No data to displayNARx Score: NARX Narcotic: 240 Stimulants: 000 Sedative: 110The patient remained stable throughout her stay in the ED. We will give her a week's worth aprescription for meloxicam, gabapentin, and Cymbalta. She was advised that we will not prescribenarcotics for chronic problem. It might be noted that her last narcotic prescription was in Januaryof this year. She is to return here immediately if her condition worsens or new symptoms developas explained otherwise follow with Dr. Malin or a physician on the [place] physician referral.The patient was seen and evaluated by Dr. Rendon who agreed with the diagnosis, disposition, andtreatment plan.Discharge medications provided:Discharge Medication List as of 06/28/2017 2:19 PMFinal impression:ICD-10-CM1.Chroni c low back pain with bilateral sciatica, unspecified back pain ypggmmgcohO52.41G89.29M54.42 2.Medication skemxrK23.0Electronicallysig rosina by: Travon Goff PA-C, 06/28/2017 9:31 PMKUSHAL OakleyC0/07/07 2135 Normal [facility] Vital Signs Date Time Vital Sign Value Performing Clinician Piper farias 05-15-2023 07:30-0400 Body temperature 97.6 [degF] [facility] 05-15-2023 07:30-0400 Diastolic blood pressure 82 mm[Hg] [facility] 05-15-2023 07:30-0400 Heart rate 87 /min [facility] 05-15-2023 07:30-0400 SaO2% (BldA) [Mass fraction] 98 % [facility] 05-15-2023 07:30-0400 Systolic blood pressure 120 mm[Hg] [facility] 05-14-2023 19:55-0400 Respiratory rate 18 /min [facility] 05-12-2023 14:37-0400 Body height 162.56 cm [facility] 05-11-2023 19:55-0400 Body weight 87.54 kg [facility] 05-11-2023 18:58-0400 Diastolic blood pressure 100 mm[Hg] [facility] 05-11-2023 18:58-0400 Heart rate 90 /min [facility] 05-11-2023 18:58-0400 Respiratory rate 16 /min [facility] 05-11-2023 18:58-0400 SaO2% (BldA) [Mass fraction] 100 % [facility] 05-11-2023 18:58-0400 Systolic blood pressure 145 mm[Hg] [facility] 05-11-2023 16:46-0400 Body height 162.56 cm [facility] 05-11-2023 16:46-0400 Body temperature 97.9 [degF] [facility] 05-11-2023 16:46-0400 Body weight 86.65 kg [facility] Encounters Encounter Date Encounter Type Care Provider Facility Start: 06-27-2024 End: 06-27-2024 Emergency department patient visit [facility] Start: 04-06-2024 ambulatory Parish Rivas acility:[facility] Start: 03-27-2024 End: 03-28-2024 Emergency department patient visit [facility] Start: 03-11-2024 End: 03-12-2024 Emergency department patient visit [facility] Start: 01-02-2024 End: 01-03-2024 Emergency department patient visit ДМИТРИЙ JEAN-BAPTISTE [facility] Start: 05-11-2023 End: 05-15-2023 Evaluation and management of inpatient NON STAFF Facility:[facility] Start: 05-11-2023 End: 05-15-2023 Evaluation and management of inpatient [facility] Work Phone: Start: 10-02-2021 End: 10-03-2021 ambulatory [facility] Start: 09-30-2021 End: 10-01-2021 ambulatory [facility] Start: 09-30-2021 End: 09-30-2021 [facility] Start: 09-16-2020 End: 09-17-2020 Patient encounter procedure CHYNA JIMÉNEZ Facility:[facility] Start: 09-03-2020 End: 09-18-2020 Patient encounter procedure CHYNA JIMÉNEZ Facility:[facility] Start: 03-18-2019 Patient encounter procedure Facility:[id number] Start: 01-07-2019 Patient encounter procedure Facility:[id number] Start: 09-28-2018 End: 09-28-2018 Patient encounter procedure HAFSA SLATER Facility:[facility] Start: 08-31-2018 End: 09-01-2018 Patient encounter procedure LEE ILO Facility:[facility] Start: 08-16-2018 End: 08-17-2018 Patient encounter procedure RAMILA MARKER Facility:[facility] Start: 03-23-2018 Encounter for preprocedural laboratory examination [facility] Start: 03-22-2018 Encounter for other [facility]procedural examination [facility] Start: 03-20-2018 End: 03-21-2018 Patient encounter procedure YAYA KARASIK Facility:[facility] Start: 03-18-2018 End: 03-19-2018 Patient encounter procedure YAYA KARASIK Facility:[facility] Start: 03-14-2018 End: 03-15-2018 Patient encounter procedure YAYA KARASIK Facility:[facility] Start: 02-06-2018 End: 02-06-2018 Patient encounter procedure YAYA KARASIK Facility:[facility] Start: 02-01-2018 End: 02-02-2018 Patient encounter procedure YAYA KARASIK Facility:[facility] Start: 01-18-2018 End: 01-19-2018 Patient encounter procedure YAYA KARASIK Facility:[facility] Start: 12-09-2017 End: 12-09-2017 Patient encounter procedure DENNIS AICTamDONNA Facility:[facility] Start: 06-29-2017 End: 06-29-2017 Emergency department [facility] [place] [facility] Start: 06-28-2017 End: 06-28-2017 Emergency department patient visit [facility] Encounter for other preprocedural examination [facility] Encounter for preprocedural laboratory examination [facility] Procedures Date Procedure Procedure Detail Performing Clinician Start: 09-16-2020 ANESTH LOWER ARM SURGERY ABDULAZIM LOPEZ Start: 09-16-2020 Neuroplasty &/transp os median nrv carpal tunne ABDULAZIM LOPEZ Start: 10-02-2018 Iaad ia rotavirus DENNIS SCHUSTER Comment on above: Performed By: #### R OTAV ####[facility] [address] [place] [place] [id number] Bentley Plan of Treatment Date Care Activity Detail Author Start: 05-15-2023 [facility] Start: 05-11-2023 Hospital admission [facility] Start: 05-11-2023 [facility] Start: 07-22-2021 Influenza vaccination Flu vaccine (# 1) [facility] Start: 2017 Lipid panel Lipid screen [facility] Start: 2007 Screening for malign ant neoplasm [facility] cervix [facility] [facility] Start: 1998 Screening for malign ant neoplasm of cervix Pap smear [facility] Start: 1996 DTaP/Tdap/Td vaccine (1 - Tdap) DTaP/Tdap/Td vaccine (1 - Tdap) [facility] Start: 1992 HIV screening HIV screen [facility] Start: 1989 COVID-19 Vaccine (1) COVID-19 Vaccin e (1) [facility] Start: 1977 Hepatitis C screening Hepatitis C sc [facility] Patient Education Depression, Ad ult (DC) [facility] DC Instructions [facility] Work Phone: Patient referral [facility] Work Phone: Payers Date Payer Category Payer Self-pay [id number] 2022 Medicaid [id number] 95 [id number] 1977 Unknown [id number] 2.16.84 0.1.734895.3.579.2.593 1977 Unknown [id number] 2.16.84 0.1.013990.3.579.2.593 1977 Unknown [id number] 2.16.84 0.1.031152.3.579.2.593 1977 Unknown [id number] 2.16.84 0.1.403362.3.579.2.593 1977 Unknown [id number] 2.16.84 0.1.822203.3.579.2.593 1977 Unknown [id number] 2.16.84 0.1.666945.3.579.2.593 1977 Unknown [id number] 2.16.84 0.1.761415.3.579.2.593 1977 Unknown [id number] 2.16.84 0.1.068295.3.579.2.593 1977 Unknown [id number] 2.16.84 0.1.887200.3.579.2.593 1977 Unknown [id number] 2.16.84 0.1.833069.3.579.2.593 1977 Unknown [id number] 2.16. 840.1.904459.3.579.2.356 1977 Unknown [id number] 2.16. 840.1.162708.3.579.2.356 1977 Unknown [id number] 2.16.8 40.1.906672.3.579.2.647 1977 Unknown [id number] 2.16.8 40.1.295840.3.579.2.647 1977 Unknown [id number] 2.16.8 40.1.443298.3.579.2.128 1977 Unknown [id number] 2.16.8 40.1.869317.3.579.2.1285 1977 Unknown [id number] 2.16.8 40.1.542062.3.579.2.1285 1977 Unknown [id number] 2.16.8 40.1.392463.3.579.2.1286 1977 Unknown [id number] 2.16.8 40.1.437232.3.579.2.1286 1977 Unknown [id number] 2.16.8 40.1.063149.3.579.2.1286 1977 Unknown [id number] 2.16.8 40.1.652969.3.579.2.1286 1959 Medicaid [id number] Unknown Unknown [id number] 2.16.8 40.1.552928.3.579.2.531 Unknown [id number] 2.16.8 40.1.923924.3.579.2.531 Social History Date Type Detail Facility Tobacco smoking status SCIS Tobacco smoking consumption unknown [employer] Phone: Start: 1975 Sex Assigned At Not on file [email or web address] Work Phone: Start: 05-11-2023 Tobacco smoking status NHIS Never smoked tobacco (finding) [facility] Start: 1975 Sex Assigned At Female F [facility] Start: 05-12-2023 Tobacco smoking status SCIS Ex-smoker (finding) [facility] Goals Date Patient Goal Desired Activity /State Functional Status Date Assessment Result Facility 05-15-2023 Functional status Patient at Baseline [facility] Work Phone: Mental Status Date Assessment Result Facility 05-15-2023 Cognitive function Cognitive Sta tus Patient at Baseline [facility] Work Phone: Clinical Note 03-27-2024 Note Date & Type Note Facility 03-27-2024 Note XR CHEST 1 VW History: Chest pain Procedure: Chest AP portable upright Comparison: 11/07/2022 Findings: The heart and lungs show no acute findings, and the mediastinum and luiz are grossly negative . No pneumothorax. Impression: No acute pulmonary process. Finalized by Catalina Hardin MD on 03/27/2024 12:47 PM [facility] Progress note 05-15-2023 Note Date & Type Note Facility 05-15-2023 Progress note Note Date/Time May 15, 2023 6:44am [facility] [address] [place] [address] Psychiatry Progress Note Signed Patient: Laina Spain MR#: [id number] : 1975 Acct:[id number] Age/Sex: 48 / F Adm Date: 3 Loc: Room: [address] [place] [address] Type : ADM IN Attending Dr: Adolfo Mcleod MD Copies to: ~ Date of Service: 05/15/2023 Subjective Subjective Narrative: Ms. Spain reported that she is doing better. She reported that she tolerated the medications okay. She has no concerns on exam. She denied any side effects to current medications at this time. Sleep and appetite were normal overnight. She stated that she we will continue looking into rehab and snf options. Shesaid heel caser from [facility] is helping her find a place. Mental Status Exam: Appearance: grossly normal Mental Status: mental status grossly normal Mood: Improving mood Affect: Improving affect Speech and Movement: speech and movement normal and speech clear Attitude: cooperative Thought Process: normal Thought Content: Denied hallucinations, no homicidality, improving suicidality Insight: fair Judgment: fair Exam Physical Exam Vital Signs: Temp Pulse Resp BP Pulse Ox O2 Del Method 97.2 F L 68 18 106/61 99 Room Air 05/14/23 19:55 05/14/23 19:55 05/14/23 19:55 05/14/23 19:55 05/14/23 19:55 05/14/23 19:55 Assessment/Plan Assessment/Plan (1) Major depressive disorder, recurrent: Code(s): F33.9 - Major depressive disorder, recurrent, unspecified Status: Acute Plan Patient reported that symptoms are improving Continue Prozac 20 mg daily Continue to monitor mental status Encourage group participation and medication compliance Risk benefits alternatives explained Documented By: Parish Matthew MD 3 43 Signed By: <Electronically signed by Parish Matthew MD> 05/15/23 0644 [facility] Work Phone: Progress note 05-14-2023 Note Date & Type Note Facility 05-14-2023 Progress note Note Date/Time May 14, 2023 7:02am [facility] [address] [place], [place] [id number] Psychiatry Progress Note Signed Patient: Laina Spain MR#: [id number] : 1975 Acct:[id number] Age/Sex: 48 / F Adm Date: 3 Loc: Room: [address] [place] [address] Type : ADM IN Attending Dr: Adolfo Mcleod MD Copies to: ~ Date of Service: 05/14/2023 Subjective Subjective Narrative: Ms. Spain reported that she is doing better. She reported that she tolerated the medications okay. She has no concerns on exam. She denied any side effects to current medications at this time. Sleep and appetite were normal overnight. She stated that she we will continue looking into rehab and snf options. Mental Status Exam: Appearance: grossly normal Mental Status: mental status grossly normal Mood: Improving mood Affect: Improving affect Speech and Movement: speech and movement normal and speech clear Attitude: cooperative Thought Process: normal Thought Content: Denied hallucinations, no homicidality, improving suicidality Insight: fair Judgment: fair Exam Physical Exam Vital Signs: Temp Pulse Resp BP Pulse Ox O2 Del Method 98.1 F 59 L 16 100/64 97 Room Air 05/13/23 18:45 05/13/23 18:45 05/13/23 18:45 05/13/23 18:45 05/13/23 18:45 05/13/23 18:45 Assessment/Plan Assessment/Plan (1) Major depressive disorder, recurrent: Code(s): F33.9 - Major depressive disorder, recurrent, unspecified Status: Acute Plan Patient reported that symptoms are improving Continue Prozac 20 mg daily Continue to monitor mental status Encourage group participation and medication compliance Risk benefits alternatives explained Documented By: Parish Matthew MD 3 [id number] Signed By: <Electronically signed by Parish Matthew MD> 05/14/23 0702 [facility] Work Phone: Progress note 05-13-2023 Note Date & Type Note Facility 05-13-2023 Progress note Note Date/Time May 13, 2023 10:24am [facility] [address] [place] [id number] Psychiatry Progress Note Signed Patient: Laina Spain MR#: [id number] : 1975 Acct:[id number] Age/Sex: 48 / F Adm Date: 3 Loc: 1S Room: [address] [place] [address] Type : ADM IN Attending Dr: Adolfo Mcleod MD Copies to: ~ Date of Service: 05/13/2023 Subjective Subjective Narrative: Ms. Spain reported that she is doing better. She reported that she tolerated the medications okay. She denied any side effects to current medications at this time. Sleep and appetite were normal overnight. She stated that she we will continue looking into rehab and snf options. Mental Status Exam: Appearance: grossly normal Mental Status: mental status grossly normal Mood: Improving mood Affect: Improving affect Speech and Movement: speech and movement normal and speech clear Attitude: cooperative Thought Process: normal Thought Content: Denied hallucinations, no homicidality, improving suicidality Insight: fair Judgment: fair Exam Physical Exam Vital Signs: Temp Pulse Resp BP Pulse Ox O2 Del Method 97.6 F 60 16 146/88 H 99 Room Air 05/13/23 07:29 05/13/23 07:29 05/13/23 07:29 05/13/23 07:29 05/13/23 07:29 05/13/23 07:29 Assessment/Plan Assessment/Plan (1) Major depressive disorder, recurrent: Code(s): F33.9 - Major depressive disorder, recurrent, unspecified Status: Acute Plan Patient reported that symptoms are improving Continue Prozac 20 mg daily Continue to monitor mental status Encourage group participation and medication compliance Risk benefits alternatives explained Documented By: Adolfo Mcleod MD 05/13/23 1023 Signed By: <Electronically signed by Adolfo Mcleod MD> 05/13/[address] [place] [address] Ctr Work Phone: History and physical note 05-12-2023 Note Date & Type Note Facility 05-12-2023 History and physi jayden note Note Date/Time May 12, 2023 11:15am [facility] [address] [place], [place] [id number] Psychiatry H&P Signed Patient: Laina Spain MR#: [id number] : 1975 Acct:[id number] Age/Sex: 48 / F Adm Date: 3 Loc: 1S Room: 3G5000-4 Type: ADM IN Attending Dr: Adolfo Mcleod MD Copies to: NON STAFF Adolfo Mcleod MD~ Date of Service: 05/12/2023 HPI History of Present Illness History of present illness: Ms. Spain is a 48 year old female who presented due to concern for depression and suicidal ideation. Reported plan of cutting or jumping in front of a car. Upon assessment, patient reported that she was feeling depressed. She reported that things have been going downhill. She stated this has been happening over the past 1 year since her son and mom but things have been worseningrecently. She reported increased sleep, decreased energy, anhedonia, and suicidal thoughts. She reported that she blames herself for a lot of things and what happened to her son. She reported that she does not have any auditory or visual hallucinations. However she does hear her voice in her head that is moodcongruent. Past psych history: Has seen a counselor in the past for depression Past hospitalizations: Denies Past suicide attempts: Denies Family psych history: Reported substance use in family Previous medications: Reported that she took medications in the past but cannot remember. She only took it for 3 to 4 days Alcohol and drug use: History of fentanyl use Living: Homeless Employment: Lost job roughly 3 months ago Review of symptoms: Constitutional: Denies chills and Denies fever(s) Eyes: Denies change in vision ENT: Denies abnormal hearing Cardiovascular: Denies chest pain Respiratory: Denies chest congestion and Denies cough Gastrointestinal: Denies change in bowel habits Genitourinary: Denies dysuria Musculoskeletal: Denies atrophy and Denies myalgias Integumentary/Breasts: Denies dry skin Neurologic: Denies abnormal gait and Denies abnormal movements Psychiatric: Reports depression and suicidal ideation Physical exam: Const: cooperative Nutritional Appearance: average body habitus Orientation: alert, awake and oriented x3 HEENT: Head normal to inspection, hearing grossly normal bilaterally, external nose normal, face symmetric Eyes: appearance normal, both eyes and all related structures, sclerae normal Neck: normal visual inspection and full ROM Resp: normal respiratory effort, able to speak in complete sentences and symmetric chest movement Cardio: regular rate GI: normal to inspection and non-distended : deferred Skin: no rashes or lesions noted Neuro: CNI: Normal olfaction CNI: normal olfaction CNII: Visual burger intact, CNIII,IV,: EOM intact, no nystagmus. Pupils equal, round, reactive to light and accommodation, CNV: Sensation intact to light touch, CNVII: Raises eyebrows, smile/frown, puff out cheeks symmetrically, CNVIII: Hearing intact bilaterally, CNIX,X: Voice normal, soft palate elevation normal, symmetrical, CNXI: Shoulder shrug strong, equal bilaterally, CNXII: Tongue protrusion midline, movement symmetrical. Extrem: normal to inspection and full ROM Mental Status Exam: Appearance: grossly normal Mental Status: mental status grossly normal Mood: dysthymic mood Affect: dysphoric affect Speech and Movement: speech and movement normal and speech clear Attitude: cooperative Thought Process: normal Thought Content: Denied hallucinations, no homicidality, reported suicidality Insight: fair Judgment: fair PMFSH Vaccinated for COVID-19?: Unknown Medical History (Updated 05/12/23 @ 11:14 by Adolfo Mcleod MD) No pertinent past medical history Surgical History (Updated 05/11/23 @ 16:42 by Denice Gutierrez RN) Hx of cholecystectomy Hx of tubal ligation Social History Smoking Status: Former smoker Substance Use Type: Amphetamines Meds Medications and Allergies Allergies tramadol Allergy (Verified 05/12/23 01:14) Hives Home Medications No known home meds 05/11/23 [History Confirmed 05/11/23] Exam Physical Exam Vital Signs: Temp Pulse Resp BP Pulse Ox O2 Del Method 97.7 F 84 16 131/100 96 Room Air 05/12/23 07:30 05/12/23 07:30 05/12/23 07:30 05/12/23 07:30 05/12/23 07:30 05/12/23 07:30 Results Labs 05/11/23 17:19 05/11/23 17:19 Psychiatry Labs: 05/11/23 05/11/23 05/11/23 17:19 17:19 17:20 RBC 5.08 H Hgb 13.8 Hct 41.6 MCV 81.9 MCH 27.2 MCHC 33.2 RDW 13.7 Plt Count 310 MPV 7.7 Sodium 138 Potassium 4.0 Chloride 104 Carbon Dioxide 25.8 Anion Gap 12.2 BUN 8 Creatinine 0.76 Calcium 9.1 Total Bilirubin 0.4 AST 13 ALT 10 Alkaline Phosphatase 69 Total Protein 7.4 Albumin 4.4 Urine Color Yellow Urine Appearance Slightly cloudy A Urine pH 5.5 Ur Specific [place] 1.030 Urine Protein Negative Urine Glucose (UA) Normal Urine Ketones Negative Urine Occult Blood Negative Urine Nitrite Negative Ur Leukocyte Esterase Negative Urine RBC 5-9 H Urine WBC 5-9 H Assessment/Plan (1) Major depressive disorder, recurrent: Code(s): F33.9 - Major depressive disorder, recurrent, unspecified Status: Acute Plan Patient presenting due to concern for depression and suicidal ideation We will start Prozac 20 mg daily Continue to monitor mental status Encourage group participation and medication compliance Risk benefits alternatives explained Documented By: Adolfo Mcleod MD 05/12/23 1112 Signed By: <Electronically signed by Adolfo Mcleod MD> 05/12/23 1119 [facility] Work Phone: Evaluation note Note Date & Type Note Facility Evaluation note Diagnosis Onset Date Depression acute Suicidal ideation acute [facility] Work Phone: Evaluation note Note Date & Type Note Facility Evaluation note Diagnosis Onset Date Depression acute Major depressive disorder, recurrent acute Suicidal ideation acute [facility] Work Phone: Hospital Discharge instructions Note Date & Type Note Facility Hospital Discharge instructions Additional Instructions Regular Diet No Activity Restrictions [facility] Work Phone: Summary Purpose Family History No Family History Records FoundNo Family History Records FoundNo Family History Records FoundNo Family History Records FoundNo Family History Records FoundNo Family History Records FoundNo Family History Records FoundNo Family History Records FoundNo Family History Records FoundNo Family History Records Found Advance Directives No Advanced Directives Records Found Advance Directive Response Recorded Date/ Time Advance Directives No May 11 5:35pm Chief Complaint and Reason for Visit Chief Complaint MHP Reason for Visit Depression Suicidal ideation Chief Complaint MHP Reason for Visit Depression Major depressive disorder, recurrent Suicidal ideation Additional Source Comments INFORMATION SOURCE (unrecogn ized section and content) DATE CREATED AUTHOR 05/16/2018 [facility] DATE CREATED AUTHOR AUTHOR'S ORGANIZ ATION 05/17/2018 [facility] DATE CREATED AUTHOR AUTHOR'S ORGANIZ ATION 05/17/2018 [facility] DATE CREATED AUTHOR AUTHOR'S ORGANIZ ATION 11/04/2018 [facility] DATE CREATED AUTHOR AUTHOR'S ORGANIZ ATION 2019 [facility] DATE CREATED AUTHOR AUTHOR'S ORGANIZ ATION 05/09/2019 [facility] DATE CREATED AUTHOR AUTHOR'S ORGANIZ ATION 10/24/2020 [facility] DATE CREATED AUTHOR AUTHOR'S ORGANIZ ATION 10/03/2021 [facility] DATE CREATED AUTHOR AUTHOR'S ORGANIZ ATION 04/14/2024 [facility] DATE CREATED AUTHOR AUTHOR'S ORGANIZ ATION 06/29/2024 [facility] Care Teams (unrecognized sec tion and content) Team Status: Active Member Role Status Dates NON STAFF Primary Care Provider Active Team Status: Inactive Member Role Status Dates NON STAFF Primary Care Provider Active Jani Drummond MD Emergency Provider Active Adolfo Mcleod MD Admit Provider, Attending Provider Active Team Status: Active Member Role Status Dates NON STAFF Primary Care Provider Active Jani Drummond MD Emergency Provider Active Adolfo Mcleod MD Admit Provider, Attending Provider Active Goals (unrecognized section and content) Goals may be documented in a n alternate section FOR RECORDS PERTAINING TO PATIENTS WHO ARE OR HAVE BEEN ENROLLED IN A CHEMICAL DEPENDENCY/SUBSTANCEABUSE PROGRAM, SOME INFORMATION MAY BE OMITTED. This clinical summary was aggregated from multiple sources. Caution should be exercised in using it in the provision of clinical care. This summary normalizes information from multiple sources, and as a consequence, information in this document may materially change the coding, format and clinical context of patient data. In addition, data may be omitted in some cases. CLINICAL DECISIONS SHOULD BE BASED ON THE PRIMARY CLINICAL RECORDS. [employer] provides no warranty or guarantee of the accuracy or completeness of information in this document.
== END 2024-10-11 10:28 | disposition home or self-care (01) ==
PROVIDERS: Emergency Provider Emergency Medicine; PCP Internal Medicine
DX: J06.9 Acute upper respiratory infection, unspecified (principal)
CPT/HCPCS: 87070; 87804; 87811; 87880; 99283; J1100